=== PATIENT | female | born 1940 | race Caucasian/White ===

== ENCOUNTER → 2018-07-05 10:42 | Outpatient (BNVA) | payer MEDICARE, SELFPAY | PROVIDERS: PCP Family Medicine; Visit Provider Orthopaedic Surgery | DX: S83.231D Complex tear of medial meniscus, current injury, right knee, subsequent encounter (principal); M25.561 Pain in right knee | CPT/HCPCS: 20610; 99213; J7325 ==

== ENCOUNTER 2018-10-11 09:09 | Day surgery (SDC) | payer MEDICARE, SELFPAY ==
--- NOTE | 2018-10-10 17:41 | W.PIPPEYE ---
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 She has undergone previous iridotomies. She presented with complaints of progressive decreased vision in both eyes at both distance and near. She was noted to have moderate bilateral nuclear and cortical cataracts with visual acuity of 20/40 OD, 20/60 OS. The option of cataract surgery was offered to the patient and she felt she was symptomatic enough that she wished to proceed. NOTE: The Chief Complaint, HPI, Past Medical History, Past Surgical History, Family History, Social History, Medications, and complete Ophthalmic Exam with detailed Assessment and Plan have already been documented in the patient's outpatient ophthalmic record and are not covered again in detail here. PFSH Medical History Anatomical narrow angle of right eye (Acute) Cortical cataract of right eye (Acute) Nuclear sclerotic cataract of right eye (Acute) Depression Glaucoma Graves disease Hiatal hernia Ocular migraine Psoriatic arthritis Family History Mother Diabetes Father Neoplasm Sister Neoplasm Brother Heart disease Brother No problems noted. Grandfather No problems noted. Grandfather No problems noted. Grandmother Diabetes Personal history of malignant neoplasm Grandmother No problems noted. Social History Smoking/Tobacco Use Status: Never Meds Home Medications Medication Instructions Recorded Confirmed Type calcium-vitamin D3-vitamin K 1 tab PO BID 02/25/13 10/06/18 History ibuprofen [Advil] 1 - 2 tab PO PRN PRN 02/25/13 10/06/18 History biotin 5,000 mcg PO DAILY 12/23/13 10/06/18 History cranberry extract 200 mg PO BID 05/02/16 10/06/18 History docusate sodium 100 mg PO DAILY 04/16/18 10/06/18 History methimazole 0.5 tab PO .QAM 04/16/18 10/06/18 History propranolol 0.5 tab PO BID 04/16/18 10/06/18 History nsprsadr-plyyx-cyd7-C-opal-bor 1 cap PO BID 10/05/18 10/06/18 History [Kceiaqgd-Mknih-FNK(with boron)] lactobacillus combination no.4 1 cap PO DAILY 10/06/18 10/06/18 History [Probiotic] Allergies Allergy/AdvReac Type Severity Reaction Status Date / Time No Known Drug Allergies Allergy Unknown unknown Unverified 04/22/17 19:27 Exam OCULAR EXAM:: Most recent ophthalmic examination reveals a corrected visual acuity of 20/40 OD, 20/60 OS. Intraocular pressure is 20 OD, 18 OS. Pupils equal, round, and reactive without afferent pupillary defect. Extraocular motility is normal. Slit-lamp examination is significant for pupils dilated to 7 mm OU. Intermediate to shallow anterior chamber depth with patent peripheral iridotomies. 1-2+ nuclear with 1+ cortical cataract is present OU. Dilated funduscopic examination reveals disc cupping of 0.5 OU with good color. The optic nerves have good perfusion and normal color. The retinal vasculature is normal without significant tortuosity or abnormality. The maculas are normal in appearance with normal contour and foveal reflex appropriate for age. The peripheral retina and vitreous are normal. BRIGHTNESS ACUITY TESTING (BAT):: Brightness acuity testing of the right eye office is 20/40. Low is 20/60. Medium is 20/70. Height is 20/80. Assessment and Plan (1) Nuclear sclerotic cataract of right eye: Current visit: No Status: Acute Assessment: Visually significant cataract, right eye. Plan: Cataract extraction with intraocular lens implantation, right eye (2) Cortical cataract of right eye: Current visit: No Status: Acute Assessment: Visually significant cataract, right eye. Plan: Cataract extraction with intraocular lens implantation, right eye Note: NOTE:: The details of the planned surgery, including the risks, indications,limitations,expectations,outcome and possible complications were explained to the patient. The patient understands the complications including, but not limited to: infection, hemorrhage, posterior dislocation of the lens or nuclear fragments which may require the intervention of a vitreoretinal surgeon, possible loss of the eye, or from anesthetic complications. The patient has been made aware of the option of not having surgery, that vision following surgery may not be equal to that prior to surgery, and that the planned surgery may not achieve the intended results. Following this discussion, which the patient appeared to understand, the patient wishes to proceed with cataract surgery with lens implantation of the affected eye to improve and maximize vision.
[2018-10-11 09:37] VITALS: BP 146/79; PULSE 63; RESP 16; TEMP 36.1; O2SAT 97
[2018-10-11] MEDS: Tetracaine 0.5% 4 ML BTL OD ×4 (09:43→10:23)
[2018-10-11] MEDS: Tropicam./Phenyleph. (1/2.5%) 5 ML BTL OD ×3 (09:43→10:05)
[2018-10-11] MEDS: Lidocaine 2% Jelly 6 ML SYR (10:25)
[2018-10-11] MEDS: Duovisc Viscoelastic System EACH 1 EACH (10:29)
[2018-10-11] MEDS: Balanced Salt Soln.-PLUS 500 ML BAG (10:29)
[2018-10-11] MEDS: Lidocaine 1% Pres-Free 5 ML VIAL (10:29)
[2018-10-11] MEDS: Povidone-Iodine Ophth 30 ML BTL (10:33)
--- NOTE | 2018-10-11 11:00 | W.PM.DSUDISC ---
Discharge Plan Discharge Details Attending Provider: Brad Scott Primary Care Provider: Mandy Orta Home Meds and New Rx's Prescriptions: No Action cranberry extract 200 MG capsule 200 mg PO BID RF: 0 ibuprofen [Advil] 200 MG tablet 1 - 2 tab PO PRN PRNRF: 0 calcium-vitamin D3-vitamin K 1 EACH tablet,chewable 1 tab PO BID RF: 0 biotin 1 MG tablet 5,000 mcg PO DAILY RF: 0 propranolol 10 MG tablet 0.5 tab PO BID RF: 0 methimazole 5 MG tablet 0.5 tab PO .QAM RF: 0 docusate sodium 100 MG tablet 100 mg PO DAILY RF: 0 dogcrfln-zeyid-lms0-C-opal-bor [Erlyhhoq-Hlbem-QLF(with boron)] 216-564-14-1 mg Tablet 1 cap PO BID RF: 0 Probiotic 3 billion cell Capsule 1 cap PO DAILY RF: 0 Discharge Instructions Stand Alone Forms: Post-op Topical Cataract, Terry Giles (DSU) DS: Diagnosis Discharge Diagnosis (1) Status post cataract extraction and insertion of intraocular lens of right eye: Status: Acute
--- NOTE | 2018-10-11 11:00 | W.PM.OP ---
Date of service: 10/11/18 Time of Service: 11:00 Operative Note DATE OF PROCEDURE: 10/11/18 PRE-OP DIAGNOSIS: Cataract, right eye POST-OP DIAGNOSIS: same SURGEON: Brad Scott ANESTHESIA: MAC and local (sub-tenon's anesthetic infiltration) PATHOLOGY: none sent COMPLICATIONS: None Patient was transported to: same day Patient's condition: stable Implants: Elías and Elías Vision / [employer] Tecnis ZCB00 Indications: Progressive decreased vision due to cataract, right eye Procedure Description: CATARACT SURGERY OPERATIVE REPORT PREOPERATIVE DIAGNOSIS: Nuclear/cortical cataract, right eye POSTOPERATIVE DIAGNOSIS: Same OPERATION: Cataract extraction using phacoemulsification with posterior chamber intraocular lens implant, right eye. IOL: IOL Painter Plate/Model: J&J Vision / EVANGELISTA Tecnis ZCB00 IOL Power: + 24.0 diopters IOL Serial Number: [id number] Optic Diameter: 6.0mm Haptic/Overall Diameter: 13.0mm PHACO INFO: Barry FamilyLinkurion Vision System with OZil and Active Fluidics Cumulative Dispersed Energy (CDE): 6.0 seconds SURGEON: Brad Scott MD, BARI ANESTHESIA: Monitored Anesthesia Care (MAC), with local sub-tenon's anesthetic infiltration COMPLICATIONS: None SPECIMENS: None INDICATIONS FOR PROCEDURE: The patient is a 78-year-old lady with history of narrow angles who has previously undergone peripheral laser iridotomy in both eyes. She has developed a moderate nuclear and cortical cataract in the right eye. She desires cataract surgery and attempt to improve and maximize her vision. PROCEDURE: The correct surgical eye was identified and marked as the right eye and the pupil was dilated in the preoperative area using mydriatics and cycloplegics. The dilated pupil size was 7.0 mm. Oral sedation was administered in the form of an Imprimis MKO Melt (midazolam 3mg/ketamine 25mg/ondansetron 2mg). The patient was brought to the operating room where cardiopulmonary monitoring was instituted and surgical time-out was performed, confirming the correct operative eye and IOL power. Topical anesthesia was administered and ophthalmic povidone-iodine 5% was instilled into the conjunctival fornices. Lidocaine gel was applied to the cornea and the gwendolyn-ocular area was prepped with Betadine 10% solution and draped in the usual sterile fashion for intraocular surgery, including an aperture drape. A Tegaderm transparent film dressing was cut in half and used to cover the lashes and lid margins. Care was taken to sequester the lashes and lid margins under the Tegaderm dressing. A lid speculum was placed between the lids of the operative eye and the Anusha-Zaida operating microscope was maneuvered into position. Che scissors were then used to make a conjunctival buttonhole approximately 6mm posterior to the limbus in the inferonasal quadrant. Blunt dissection was carried out to expose bare sclera, and a blunt-tipped sub-tenon?s anesthesia cannula was introduced and passed posteriorly along the globe where non-preserved plain lidocaine was injected into posterior sub-Tenon?s space. A sideport knife was used to make a paracentesis port in the inferiortemporal position and the anterior chamber was filled with Viscoat for added endothelial protection due to the narrow angle/shallow chamber.. A 2.4mm keratome knife was used to create a half-thickness groove at the limbus and then to construct a three-plane near-clear corneal tunnel extending 2.0mm into clear cornea in the superiortemporal position. . A flap was raised on the anterior capsule and capsulorhexis forceps were used to complete a continuous curvilinear capsulorhexis of 5.0 mm. Balanced salt solution was then used to perform cortical cleaving hydrodissection and nuclear hydrodelineation until the lens could be freely rotated within the capsular bag. The lens nucleus was then disassembled and removed within the capsular bag and iris plane using phacoemulsification. Residual cortical material was removed using the 45-degree angled silicone I/A tip with 0.3mm port. The posterior capsule was carefully polished to remove as much residual lens epithelial cells as safely possible. The capsular bag was then inflated and the anterior chamber deepened with Provisc. The lens implant described above was inserted into the capsular bag using the EVANGELISTA [place] Injector. A Kuglen hook was used to dial the IOL into position. Residual viscoelastic was then removed first from posterior to the IOL, then from the anterior chamber using the I/A handpiece. The lens implant was noted to center nicely within the capsular bag. The incisions were stromally hydrated, and the anterior chamber was reformed using BSS. Then 0.4cc of moxifloxacin 1.5mg/ml were injected into the capsular bag and anterior chamber. The incisions were checked with a Weck spear and found to be secure. Several drops of ophthalmic povidone-iodine 5% were then applied to the eye followed by two drops of Imprimis combination moxifloxacin/dexamethasone solution. The drapes were removed and a clear plastic protective eye shield was placed over the eye. The patient was then returned to Same Day Surgery in stable condition.
--- NOTE | 2018-10-11 11:03 | ROE_ITS ---
Date of service: 10/11/18 Time of Service: 11:00 Operative Note DATE OF PROCEDURE: 10/11/18 PRE-OP DIAGNOSIS: Cataract, right eye POST-OP DIAGNOSIS: same SURGEON: Brad Scott ANESTHESIA: MAC and local (sub-tenon's anesthetic infiltration) PATHOLOGY: none sent COMPLICATIONS: None Patient was transported to: same day Patient's condition: stable Implants: Elías and Elías Vision / [employer] Tecnis [id number] Indications: Progressive decreased vision due to cataract, right eye Procedure Description: CATARACT SURGERY OPERATIVE REPORT PREOPERATIVE DIAGNOSIS: Nuclear/cortical cataract, right eye POSTOPERATIVE DIAGNOSIS: Same OPERATION: Cataract extraction using phacoemulsification with posterior chamber intraocular lens implant, right eye. IOL: IOL Prison Keeper/Model: J&J Vision / EVANGELISTA Tecnis ZCB00 IOL Power: + 24.0 diopters IOL Serial Number: [id number] Optic Diameter: 6.0mm Haptic/Overall Diameter: 13.0mm PHACO INFO: Barry We[employer]lowurion Vision System with OZil and Active Fluidics Cumulative Dispersed Energy (CDE): 6.0 seconds SURGEON: Brad Scott MD, BARI ANESTHESIA: Monitored Anesthesia Care (MAC), with local sub-tenon's anesthetic infiltration COMPLICATIONS: None SPECIMENS: None INDICATIONS FOR PROCEDURE: The patient is a 78-year-old lady with history of narrow angles who has previously undergone peripheral laser iridotomy in both eyes. She has developed a moderate nuclear and cortical cataract in the right eye. She desires cataract surgery and attempt to improve and maximize her vision. PROCEDURE: The correct surgical eye was identified and marked as the right eye and the pupil was dilated in the preoperative area using mydriatics and cycloplegics. The dilated pupil size was 7.0 mm. Oral sedation was administered in the form of an Imprimis MKO Melt (midazolam 3mg/ketamine 25mg/ondansetron 2mg). The patient was brought to the operating room where cardiopulmonary monitoring was instituted and surgical time-out was performed, confirming the correct operative eye and IOL power. Topical anesthesia was administered and ophthalmic povidone-iodine 5% was instilled into the conjunctival fornices. Lidocaine gel was applied to the cornea and the gwendolyn-ocular area was prepped with Betadine 10% solution and draped in the usual sterile fashion for intraocular surgery, including an aperture drape. A Tegaderm transparent film dressing was cut in half and used to cover the lashes and lid margins. Care was taken to sequester the lashes and lid margins under the Tegaderm dressing. A lid speculum was placed between the lids of the operative eye and the Anusha-Zaida operating microscope was maneuvered into position. Che scissors were then used to make a conjunctival buttonhole approximately 6mm posterior to the limbus in the inferonasal quadrant. Blunt dissection was carried out to expose bare sclera, and a blunt-tipped sub-tenon?s anesthesia cannula was introduced and passed posteriorly along the globe where non- preserved plain lidocaine was injected into posterior sub-Tenon?s space. A sideport knife was used to make a paracentesis port in the inferiortemporal position and the anterior chamber was filled with Viscoat for added endothelial protection due to the narrow angle/shallow chamber.. A 2.4mm keratome knife was used to create a half-thickness groove at the limbus and then to construct a three-plane near-clear corneal tunnel extending 2.0mm into clear cornea in the superiortemporal position. . A flap was raised on the anterior capsule and capsulorhexis forceps were used to complete a continuous curvilinear capsulorhexis of 5.0 mm. Balanced salt solution was then used to perform cortical cleaving hydrodissection and nuclear hydrodelineation until the lens could be freely rotated within the capsular bag. The lens nucleus was then disassembled and removed within the capsular bag and iris plane using phacoemulsification. Resi dual cortical material was removed using the 45-degree angled silicone I/A tip with 0.3mm port. The posterior capsule was carefully polished to remove as much residual lens epithelial cells as safely possible. The capsular bag was then inflated and the anterior chamber deepened with Provisc. The lens implant described above was inserted into the capsular bag using the EVANGELISTA [place] Injector. A Kuglen hook was used to dial the IOL into position. Residual viscoelastic was then removed first from posterior to the IOL, then from the anterior chamber using the I/A handpiece. The lens implant was noted to center nicely within the capsular bag. The incisions were stromally hydrated, and the anterior chamber was reformed using BSS. Then 0.4cc of moxifloxacin 1.5mg/ml were injected into the capsular bag and anterior chamber. The incisions were checked with a Weck spear and found to be secure. Several drops of ophthalmic povidone-iodine 5% were then applied to the eye followed by two drops of Imprimis combination moxifloxacin/dexamethasone solution. The drapes were removed and a clear plastic protective eye shield was placed over the eye. The patient was then returned to Same Day Surgery in stable condition.
[2018-10-11 11:30] VITALS: BP 120/66; PULSE 69; RESP 16; O2SAT 98
== END 2018-10-11 11:40 | disposition home or self-care (01) ==
LOC: SUR 09:10
PROVIDERS: PCP Family Medicine; Visit Provider Ophthalmology
PROC: (CPT 66984; principal; 2018-10-11 11:30)
DX: H25.811 Combined forms of age-related cataract, right eye (principal); I10 Essential (primary) hypertension
CPT/HCPCS: 66984; V2632

== ENCOUNTER 2018-10-22 08:18 | Day surgery (SDC) | payer MEDICARE, SELFPAY ==
--- NOTE | 2018-10-21 12:08 | W.PIPPEYE ---
History of Present Illness Chief Complaint: Progressive decreased vision, left eye Narrative: The patient is a 78-year old lady with history of hyperopia with narrow anterior chamber angles. She has previously undergone laser iridotomy in both eyes. She presented with complaints of diminished visual acuity in both eyes at both distance and near. She was noted to have moderate bilateral nuclear and cortical cataracts with visual acuity of 20/40 OD, 20/60 OS. The option of cataract surgery was offered to the patient and she wished to proceed. She underwent cataract surgery in the right eye on 10/11/2018. She is doing well postoperatively with uncorrected vision of 20/20 in the right eye. She now presents for cataract surgery in the left eye. NOTE: The Chief Complaint, HPI, Past Medical History, Past Surgical History, Family History, Social History, Medications, and complete Ophthalmic Exam with detailed Assessment and Plan have already been documented in the patient's outpatient ophthalmic record and are not covered again in detail here. PFSH Medical History Nuclear sclerotic cataract of left eye (Acute) Cortical cataract of left eye (Acute) Anatomical narrow angle of right eye (Resolved) Cortical cataract of right eye (Resolved) Nuclear sclerotic cataract of right eye (Resolved) Depression Glaucoma Graves disease Hiatal hernia Ocular migraine Psoriatic arthritis Surgical History Status post cataract extraction and insertion of intraocular lens of right eye (Acute 10/11/18) Family History Mother Diabetes Father Neoplasm Sister Neoplasm Brother Heart disease Brother No problems noted. Grandfather No problems noted. Grandfather No problems noted. Grandmother Diabetes Personal history of malignant neoplasm Grandmother No problems noted. Social History Smoking/Tobacco Use Status: Never Meds Home Medications Medication Instructions Recorded Confirmed Type calcium-vitamin D3-vitamin K 1 tab PO BID 02/25/13 10/11/18 History ibuprofen [Advil] 1 - 2 tab PO PRN PRN 02/25/13 10/11/18 History biotin 5,000 mcg PO DAILY 12/23/13 10/11/18 History cranberry extract 200 mg PO BID 05/02/16 10/11/18 History docusate sodium 100 mg PO DAILY 04/16/18 10/11/18 History methimazole 0.5 tab PO .QAM 04/16/18 10/11/18 History propranolol 0.5 tab PO BID 04/16/18 10/11/18 History txdomkzb-hglyl-tkt4-C-opal-bor 1 cap PO BID 10/05/18 10/11/18 History [Xqkxnxbq-Wgyik-PAG(with boron)] lactobacillus combination no.4 1 cap PO DAILY 10/06/18 10/11/18 History [Probiotic] Allergies Allergy/AdvReac Type Severity Reaction Status Date / Time No Known Drug Allergies Allergy Unknown unknown Unverified 10/11/18 09:34 Exam OCULAR EXAM:: Most recent ocular examination reveals uncorrected visual acuity of 20/20 in the right eye. Corrected visual acuity is 20/60 in the left eye. Intraocular pressure is 20 OD, 18 OS. Pupils equal, round, and reactive without afferent pupillary defect extraocular motility is normal. Slit-lamp examination is significant for a patent peripheral iridotomy in both eyes. A well-positioned PCIOL is present OD with clear posterior capsule. The left eye there is a shallow to intermediate anterior chamber depth with 1-2+ nuclear and 1+ cortical cataract. Dilated funduscopic examination shows disc cupping of 0.5 OU with normal vessels, macula, peripheral retina and vitreous. BRIGHTNESS ACUITY TESTING (BAT):: Brightness acuity testing of the left eye off is 20/60. Low 20/60. Medium 20/60. I 20/60. Assessment and Plan (1) Cortical cataract of left eye: Current visit: No Status: Acute Assessment: Visually significant cataract, left eye. Plan: Cataract extraction with intraocular lens implantation, left eye (2) Nuclear sclerotic cataract of left eye: Current visit: No Status: Acute Assessment: Visually significant cataract, left eye. Plan: Cataract extraction with intraocular lens implantation, left eye Note: NOTE:: The details of the planned surgery, including the risks, indications,limitations,expectations,outcome and possible complications were explained to the patient. The patient understands the complications including, but not limited to: infection, hemorrhage, posterior dislocation of the lens or nuclear fragments which may require the intervention of a vitreoretinal surgeon, possible loss of the eye, or from anesthetic complications. The patient has been made aware of the option of not having surgery, that vision following surgery may not be equal to that prior to surgery, and that the planned surgery may not achieve the intended results. Following this discussion, which the patient appeared to understand, the patient wishes to proceed with cataract surgery with lens implantation of the affected eye to improve and maximize vision.
[2018-10-22 08:32] VITALS: BP 145/77; PULSE 88; RESP 16; TEMP 36.6; O2SAT 98
[2018-10-22] MEDS: Tropicam./Phenyleph. (1/2.5%) 5 ML BTL OS ×3 (08:46→08:53)
[2018-10-22] MEDS: Tetracaine 0.5% 4 ML BTL OS ×4 (08:46→10:18)
[2018-10-22] MEDS: Povidone-Iodine Ophth 30 ML BTL (10:18)
[2018-10-22] MEDS: Lidocaine 1% Pres-Free 5 ML VIAL (10:18)
[2018-10-22] MEDS: Balanced Salt Soln.-PLUS 500 ML BAG (10:18)
[2018-10-22] MEDS: Duovisc Viscoelastic System EACH 1 EACH (10:18)
[2018-10-22] MEDS: Lidocaine 2% Jelly 6 ML SYR (10:18)
--- NOTE | 2018-10-22 10:50 | W.PM.DSUDISC ---
Discharge Plan Discharge Details Reason For Visit: CATARACT OS Attending Provider: Brad Scott Primary Care Provider: Mandy Orta Home Meds and New Rx's Prescriptions: No Action cranberry extract 200 MG capsule 200 mg PO BID RF: 0 ibuprofen [Advil] 200 MG tablet 1 - 2 tab PO PRN PRNRF: 0 calcium-vitamin D3-vitamin K 1 EACH tablet,chewable 1 tab PO BID RF: 0 biotin 1 MG tablet 5,000 mcg PO DAILY RF: 0 propranolol 10 MG tablet 0.5 tab PO BID RF: 0 methimazole 5 MG tablet 0.5 tab PO .QAM RF: 0 docusate sodium 100 MG tablet 100 mg PO DAILY RF: 0 ssxdxlsm-slbmu-ijc9-C-opal-bor [Flotfktt-Tiqkd-LPO(with boron)] 220-083-31-1 mg Tablet 1 cap PO BID RF: 0 Probiotic 3 billion cell Capsule 1 cap PO DAILY RF: 0 Discharge Instructions Stand Alone Forms: Post-op Topical Cataract, Terry Giles (DSU) DS: Diagnosis Discharge Diagnosis (1) Status post cataract extraction and insertion of intraocular lens of left eye: Status: Chronic
--- NOTE | 2018-10-22 10:51 | W.PM.OP ---
Date of service: 10/22/18 Time of Service: 10:51 Operative Note PRE-OP DIAGNOSIS: Cataract, left eye POST-OP DIAGNOSIS: same PROCEDURE: Cataract extraction using phacoemulsification with intraocular lens implant, left eye SURGEON: Brad Scott ANESTHESIA: MAC and local (sub-tenon's anesthetic infiltration) PATHOLOGY: none sent COMPLICATIONS: None Patient was transported to: same day Patient's condition: stable Implants: Elías and Elías [employer] / [employer] Tecnis [id number] Indications: Progressive decreased vision due to cataract, left eye Procedure Description: CATARACT SURGERY OPERATIVE REPORT PREOPERATIVE DIAGNOSIS: Nuclear/cortical cataract, left eye POSTOPERATIVE DIAGNOSIS: Same OPERATION: Cataract extraction using phacoemulsification with posterior chamber intraocular lens implant, left eye. 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/Model: [employer] / EVANGELISTA Tecnis ZCB00 IOL Power: + 24.0 diopters IOL Serial Number: [id number] Optic Diameter: 6.0mm Haptic/Overall Diameter: 13.0mm PHACO INFO: Barry POWurion Vision System with OZil and Active [employer]uidics Cumulative Dispersed Energy (CDE): 6.6 seconds SURGEON: Brad Scott MD, BARI ANESTHESIA: Monitored Anesthesia Care (MAC), with local sub-tenon's anesthetic infiltration COMPLICATIONS: None SPECIMENS: None INDICATIONS FOR PROCEDURE: The patient is a 78-year-old lady with history of narrow anterior chamber angles who is pre-of the undergone laser iridotomy. She developed some dramatic bilateral nuclear and cortical cataracts. She has already undergone cataract surgery in her right eye on 10/11/2018 and is doing well postoperatively. She now presents for cataract surgery in the left eye. PROCEDURE: The correct surgical eye was identified and marked as the left eye and the pupil was dilated in the preoperative area using mydriatics and cycloplegics. The dilated pupil size was 6.0 mm. Oral sedation was administered in the form of an Imprimis MKO Melt (midazolam 3mg/ketamine 25mg/ondansetron 2mg). The patient was brought to the operating room where cardiopulmonary monitoring was instituted and surgical time-out was performed, confirming the correct operative eye and IOL power. Topical anesthesia was administered and ophthalmic povidone-iodine 5% was instilled into the conjunctival fornices. Lidocaine gel was applied to the cornea and the gwendolyn-ocular area was prepped with Betadine 10% solution and draped in the usual sterile fashion for intraocular surgery, including an aperture drape. A Tegaderm transparent film dressing was cut in half and used to cover the lashes and lid margins. Care was taken to sequester the lashes and lid margins under the Tegaderm dressing. A lid speculum was placed between the lids of the operative eye and the Anusha-Zaida operating microscope was maneuvered into position. Che scissors were then used to make a conjunctival buttonhole approximately 6mm posterior to the limbus in the inferonasal quadrant. Blunt dissection was carried out to expose bare sclera, and a blunt-tipped sub-tenon?s anesthesia cannula was introduced and passed posteriorly along the globe where non-preserved plain lidocaine was injected into posterior sub-Tenon?s space. A sideport knife was used to make a paracentesis port superior/superiortemporal, and the anterior chamber was filled with Viscoat. A 2.4mm keratome knife was used to create a half-thickness groove at the limbus and then to construct a three-plane near-clear corneal tunnel extending 2.0mm into clear cornea in the temporal position. . A flap was raised on the anterior capsule and capsulorhexis forceps were used to complete a continuous curvilinear capsulorhexis of 5.5 mm. Balanced salt solution was then used to perform cortical cleaving hydrodissection and nuclear hydrodelineation until the lens could be freely rotated within the capsular bag. The lens nucleus was then disassembled and removed within the capsular bag and iris plane using phacoemulsification. Residual cortical material was removed using the 45-degree angled silicone I/A tip with 0.3mm port. The posterior capsule was carefully polished to remove as much residual lens epithelial cells as safely possible. The capsular bag was then inflated and the anterior chamber deepened with Provisc. The lens implant described above was inserted into the capsular bag using the EVANGELISTA Ione Injector. A Kuglen hook was used to dial the IOL into position. Residual viscoelastic was then removed first from posterior to the IOL, then from the anterior chamber using the I/A handpiece. The lens implant was noted to center nicely within the capsular bag. The incisions were stromally hydrated, and the anterior chamber was reformed using BSS. Then 0.4cc of moxifloxacin 1.5mg/ml were injected into the capsular bag and anterior chamber. The incisions were checked with a Weck spear and found to be secure. Several drops of ophthalmic povidone-iodine 5% were then applied to the eye followed by two drops of Imprimis combination moxifloxacin/dexamethasone solution. The drapes were removed and a clear plastic protective eye shield was placed over the eye. The patient was then returned to Same Day Surgery in stable condition.
[2018-10-22 11:10] VITALS: BP 129/82; PULSE 77; RESP 16; TEMP 36.2; O2SAT 99
== END 2018-10-22 11:15 | disposition home or self-care (01) ==
LOC: SUR 08:18
PROVIDERS: PCP Family Medicine; Visit Provider Ophthalmology
PROC: (CPT 66984; principal; 2018-10-22 10:30)
DX: H25.812 Combined forms of age-related cataract, left eye (principal); Z98.41 Cataract extraction status, right eye; Z96.1 Presence of intraocular lens; I10 Essential (primary) hypertension
CPT/HCPCS: 66984; V2632

== ENCOUNTER 2018-11-16 00:16 | Outpatient (CLI) | payer MEDICARE, SELFPAY ==
--- NOTE | 2018-11-16 13:15 | DI.RAD_ITS ---
SYMPTOMS/DIAGNOSIS: MENOPAUSE, Z78.0, MENOPAUSAL AND POSTMENOPAUSAL DISORDERS, N95.9 DEXA SCAN: Routine examination was performed. There are no priors for comparison. Evaluation of the lateral spine shows no compression deformities. Evaluation of the left hip shows a total T score of -1.8 and a Z score of 0. This is consistent with osteopenia and an increased fracture risk. Evaluation of the lumbar spine shows a total T score of -0.2 and a Z score of 2.2, which is within normal limits. IMPRESSION: No evidence of osteoporosis. Osteopenia in the left hip.
== END 2018-11-16 00:36 ==
PROVIDERS: PCP Family Medicine; Visit Provider Nurse Practitioner
DX: M85.88 Other specified disorders of bone density and structure, other site (principal); Z78.0 Asymptomatic menopausal state; N95.9 Unspecified menopausal and perimenopausal disorder
CPT/HCPCS: 77080

== ENCOUNTER 2019-01-25 10:38 | Outpatient (CLI) | payer MEDICARE, SELFPAY ==
--- NOTE | 2019-01-25 10:34 | DI.RAD_ITS ---
SYMPTOMS/DIAGNOSIS: NEW ONSET OF PAIN RIGHT KNEE: Medial tibiofemoral joint space narrowing is noted. There is minimal periarticular hypertrophic spurring. 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
== END 2019-01-25 10:58 ==
PROVIDERS: PCP Family Medicine; Referring Provider Family Medicine; Visit Provider Orthopaedic Surgery
DX: M17.11 Unilateral primary osteoarthritis, right knee (principal); M25.561 Pain in right knee
CPT/HCPCS: 20610; 73562; 99211; 99213; J7325

== ENCOUNTER 2019-02-09 08:00 | Outpatient (CLI) | payer MEDICARE, SELFPAY ==
[2019-02-09 13:37] LABS: ALT 22 U/L (12-78); AST 17 U/L (15-37); Albumin 3.6 g/dL (3.4-5.0); Alkaline Phosphatase 92 U/L (46-116); Bilirubin, Direct 0.09 mg/dL (0.00-0.20); Bilirubin, Total 0.3 mg/dL (0.2-1.0); TSH (W/Ref FT4) 1.04 uIU/mL (0.358-3.74); Total Protein 6.4 g/dL (6.4-8.2)
== END 2019-02-09 08:20 ==
PROVIDERS: PCP Family Medicine; Visit Provider Nurse Practitioner Family
DX: E05.90 Thyrotoxicosis, unspecified without thyrotoxic crisis or storm (principal)
CPT/HCPCS: 36415; 80076; 84443

== ENCOUNTER → 2019-03-10 10:30 | Outpatient (BNVA) | payer MEDICARE, SELFPAY | PROVIDERS: PCP Family Medicine; Referring Provider Family Medicine; Visit Provider Orthopaedic Surgery | DX: M17.11 Unilateral primary osteoarthritis, right knee (principal); Z98.890 Other specified postprocedural states | CPT/HCPCS: 20610; 99211; 99212; J1040 ==

== ENCOUNTER 2019-05-19 08:28 | Outpatient (CLI) | payer MEDICARE, SELFPAY ==
[2019-05-19 08:58] LABS: HCT 38.5 % (36.0-46.0); HGB 12.5 g/dL (12.0-15.5); Mean Corp. HGB Concentration 32.5 g/dL (32.0-36.0); Mean Corpuscular Hemoglobin 30.7 pg (27.0-33.0); Mean Corpuscular Volume 94.6 fL (80-95); Mean Platelet Volume 11.2 fL (8.0-11.0); Platelet Count 207 x1000/uL (130-400); RBC 4.07 m/cumm (4.00-5.20); RBC Distribution Width 14.6 % (11.7-14.6); White Blood Cell Count 4.62 k/cumm (4.4-10.8)
[2019-05-19 10:25] LABS: ALT 27 U/L (12-78); AST 18 U/L (15-37); Albumin 3.8 g/dL (3.4-5.0); Alkaline Phosphatase 94 U/L (46-116); Anion Gap 9.2 mmol/L (3-11); BUN 19 mg/dL (7-18); Bilirubin, Total 0.3 mg/dL (0.2-1.0); CO2 27.8 mmol/L (21.0-32.0); CREATININE 0.65 mg/dL (0.55-1.02); Calcium 8.8 mg/dL (8.5-10.1); Calculated LDL 150 mg/dL; Chloride 104 mmol/L (98-107); Cholesterol 222 mg/dL (50-200); Glucose 99 mg/dL (70-100); HDL Cholesterol 58 mg/dL (40-60); Sodium 141 mmol/L (136-145); TSH (W/Ref FT4) 1.02 uIU/mL (0.36-3.74); Total Protein 6.6 g/dL (6.4-8.2); Triglyceride 71 mg/dL (30-150)
== END 2019-05-19 08:48 ==
PROVIDERS: PCP Family Medicine; Visit Provider Family Medicine
DX: E05.00 Thyrotoxicosis with diffuse goiter without thyrotoxic crisis or storm (principal); Z13.6 Encounter for screening for cardiovascular disorders; M85.80 Other specified disorders of bone density and structure, unspecified site; Z13.1 Encounter for screening for diabetes mellitus
CPT/HCPCS: 36415; 80053; 80061; 83721; 85027; 84443

== ENCOUNTER 2019-06-06 00:46 | Outpatient (CLI) | payer MEDICARE, SELFPAY ==
--- NOTE | 2019-06-06 13:12 | DI.MAMMO_ITS ---
SYMPTOMS/DIAGNOSIS: SCREENING, Z12.31 MAMMOGRAM: Mammograms were interpreted according to the usual protocol including computer analysis with CAD system, tomosynthesis and C view imaging. The breasts are of moderate density with fairly symmetrical distribution of fibroglandular tissue. No dominant mass or clumped microcalcification is identified in either breast. The current examination is compared with previous examinations including February 2017 and there has been no gross interval change in appearance in comparison with the previous study. CONCLUSION: No specific evidence of malignancy at this time. Routine screening examinations are suggested at yearly intervals in this age group according to the ACS/ACR guidelines. Category I. Breast density Category B. MQSA ASSESSMENT OF FINDINGS: Negative. Category 1. Patient will receive a letter notifying them of these results. BI-RADS category B. There are scattered areas of fibroglandular density.
== END 2019-06-06 01:06 ==
PROVIDERS: PCP Family Medicine; Visit Provider Family Medicine
DX: Z12.31 Encounter for screening mammogram for malignant neoplasm of breast (principal)
CPT/HCPCS: 77063; 77067

== ENCOUNTER → 2019-08-22 10:47 | Outpatient (BNVA) | payer MEDICARE, SELFPAY | PROVIDERS: PCP Family Medicine; Referring Provider Family Medicine; Visit Provider Student in an Organized Health Care Education/Training Program | DX: M17.11 Unilateral primary osteoarthritis, right knee (principal) | CPT/HCPCS: 20610; 99214; J1040 ==

== ENCOUNTER 2020-06-05 14:52 | Outpatient (REF) | payer MEDICARE, SELFPAY ==
[2020-06-05 21:29] LABS: ALT 24 U/L (14-59); AST 25 U/L (15-37); Albumin 3.8 g/dL (3.4-5.0); Alkaline Phosphatase 84 U/L (46-116); Anion Gap 6.8 mmol/L (3-11); BUN 17 mg/dL (7-18); Bilirubin, Total 0.3 mg/dL (0.2-1.0); CO2 30.2 mmol/L (21.0-32.0); CREATININE 0.78 mg/dL (0.55-1.02); Calculated LDL 139 mg/dL (<100); Chloride 103 mmol/L (98-107); Cholesterol 218 mg/dL (<200); Glucose 102 mg/dL (74-106); HDL Cholesterol 58 mg/dL (40-60); Potassium 4.2 mmol/L (3.5-5.1); Sodium 140 mmol/L (136-145); TSH (W/Ref FT4) 0.78 uIU/mL (0.36-3.74); Total Protein 6.6 g/dL (6.4-8.2); Triglyceride 108 mg/dL (<150)
== END 2020-06-05 15:12 ==
LOC: NCHCN 14:52
PROVIDERS: PCP Family Medicine; Visit Provider Family Medicine
DX: E05.00 Thyrotoxicosis with diffuse goiter without thyrotoxic crisis or storm (principal)
CPT/HCPCS: 80053; 80061; 84443

== ENCOUNTER → 2020-08-20 09:26 | Outpatient (BNVA) | payer MEDICARE, SELFPAY | PROVIDERS: PCP Family Medicine; Referring Provider Family Medicine; Visit Provider Student in an Organized Health Care Education/Training Program | DX: M17.11 Unilateral primary osteoarthritis, right knee (principal); Z98.890 Other specified postprocedural states | CPT/HCPCS: 20610; 99213; J1040 ==

== ENCOUNTER 2020-10-16 02:11 | Outpatient (CLI) | payer MEDICARE, SELFPAY ==
[2020-10-16 11:15] LABS: AST 16 U/L (15-37); FREE T4 0.79 ng/dL (0.76-1.46); TSH 0.75 uIU/mL (0.36-3.74)
== END 2020-10-16 02:31 ==
PROVIDERS: PCP Family Medicine; Visit Provider Internal Medicine Endocrinology, Diabetes & Metabolism
DX: E05.90 Thyrotoxicosis, unspecified without thyrotoxic crisis or storm (principal)
CPT/HCPCS: 36415; 84439; 84443; 84450

== ENCOUNTER 2020-12-31 10:30 | Emergency (ER) | payer MEDICARE, SELFPAY ==
[2020-12-31] VITALS (35 sets, daily range): BP systolic 123–161; BP diastolic 54–124; PULSE 67–97; RESP 13–23; TEMP 36.5–37; O2SAT 94–100
--- NOTE | 2020-12-31 10:30 | RT.EKG_ITS ---
APPROVED REPORT Exam: Resting ECG Patient Location: E HR:81 bpm ECG Measurements Heart Rate 81 AXIS OK 183 P 75 QRSd 81 QRS 12 QT 358 T 53 QTc 416 Conclusion Sinus rhythm...normal P axis, V-rate 60- 99 Probable left atrial enlargement...P >50mS, <-0.10mV V1 sinus rhythm at 81, normal axis, no acute ischemic changes, nondiagnostic EKG
--- NOTE | 2020-12-31 10:57 | W.ED.GENAD ---
Discharge Plan Disposition Patient Disposition: HOME Condition: Stable Discharge Details Clinical Impression: UTI (urinary tract infection), Heart palpitations Primary Care Provider: Mandy Orta ED Provider: Amarilys Tijerina Home Meds and New Rx's Prescriptions: New cephalexin 500 mg capsule 500 mg PO BID Qty: 10 RF: 0 Continued cranberry extract 200 MG capsule 200 mg PO BID RF: 0 ibuprofen [Advil] 200 MG tablet 1 - 2 tab PO PRN PRNRF: 0 calcium-vitamin D3-vitamin K 1 EACH tablet,chewable 1 tab PO BID RF: 0 biotin 1 MG tablet 5,000 mcg PO DAILY RF: 0 methimazole 5 MG tablet 0.5 tab PO .QAM RF: 0 docusate sodium 100 MG tablet 100 mg PO DAILY RF: 0 Discharge Instructions Instructions: Heart Palpitations (ED), Urinary Tract Infection in Women (ED) Additional Instructions: Please return immediately to the emergency department if you develop any new or worsening symptoms, if your condition does not improve as expected, or if you become otherwise concerned. It is extremely important that you call soon as possible to make an appointment to be seen in follow-up for this visit by your primary care doctor. Referrals: Mandy Orta [Primary Care Provider] - Discharge Data Discharge Date/Time-TO BE ENTERED AT DEPARTURE: 12/31/20 15:40 Medical Decision Making Arianne Wilson is a 80-year-old woman with a history of hypertension, hypothyroidism who presented to emergency department with sensation of feeling intermittently hot and cold without measured fever, generalized weakness, and intermittent sensation of heart racing since 12/28/2020; patient reported sensation of heart racing while here on the monitor and while in normal sinus rhythm. On exam patient is very well and nontoxic-appearing. Sinus rhythm 80 on the monitor without ectopy. Benign cardiopulmonary exam. Concern for metabolic/lyte disturbance, occult infection, other. Less likely acute coronary syndrome, arrhythmia, pulmonary embolism. Exam/history at this time is not consistent with acute aortic process, acute emergent intra-abdominal process. EKG is nondiagnostic. Plan for chest x-ray, screening labs, IV fluid hydration, telemetry. Will monitor and reassess. If initial work-up negative, plan for repeat troponin and EKG. Labs reviewed, WBC 6.38, lactate 1.7, anion gap 9.6, troponin normal, urine shows leukoesterase and WBCs, d-dimer neg when age-adjusted. Unclear if UTI is etiology of patient's symptoms, will treat with Keflex. Plan for 48-hour Holter monitor for palpitations, at one point patient did show sinus tachycardia to 110 on monitor and rhythm strip for brief period, less than 1 minute, patient did report that this felt similar to palpitation she has been experiencing. Awaiting repeat troponin, EKG. Rpt trop, EKG okay. Plan for holter monitor and outpt f/u. Rx keflex for UTI. I had a lengthy discussion with Patient regarding return to emergency department precautions, home care, and importance of outpatient follow-up. Pt verbalizes understanding of the plan and is amenable. Patient discharged to home with clear plan for outpatient follow-up. All questions were answered. Disposition decision was made weighing the risks and benefits of hospitalization versus outpatient treatment, the risk for further decompensation, and the patient's wishes. Medical Records Medical records reviewed: Yes I reviewed the patient's medical records. Imaging Data Radiologic Study: Attestation: I personally reviewed and interpreted this imaging study as follows: Radiologist's impression: EXAM: XR CHEST 2V PA LATERAL CLINICAL HISTORY: palpitations TECHNIQUE: 2D digital imaging was performed. COMPARISON: No exams were available for comparison FINDINGS: MEDIASTINUM: Normal. HEART: Normal. PULMONARY VASCULATURE: Normal. LUNGS: Clear. PLEURAL SPACE: No pleural effusion or pneumothorax. BONE:Degenerative changes in the spine IMPRESSION: No acute pulmonary findings. Lab Data Lab results reviewed: Yes I reviewed the patient's lab results. Labs: 12/31/20 11:28 Urine - Reflex from Ua Urine Culture - Final Group B Streptococcus Gram Positive Alanna,Mixed Laboratory Tests Range/Units 12/31/20 12/31/20 12/31/20 11:00 11:00 11:00 WBC (4.4-10.8) 10^3/uL 6.38 RBC (3.93-5.22) 10^6/uL 4.15 Hgb (11.2-15.7) g/dL 12.9 Hct (36.0-46.0) % 38.8 MCV (80-95) fL 93.5 MCH (27.0-33.0) pg 31.1 MCHC (32.0-36.0) % 33.2 RDW (11.7-14.6) % 12.9 Plt Count (130-400) 10^3/uL 229 MPV (8.0-11.0) fL 11.1 H Immature Gran % 0.3 Neutrophils % 74.2 Lymphocytes % 18.5 Monocytes % 6.4 Eosinophils % 0.3 Basophils % 0.3 Nucleated RBC % % 0 Absolute Neutrophils (1.2-6.7) 10^3/uL 4.73 Absolute Lymphocytes (1.2-3.4) 10^3/uL 1.18 L Absolute Monocytes (0.1-0.8) 10^3/uL 0.41 Absolute Eosinophils (0.0-0.7) 10^3/uL 0.02 Absolute Basophils (0.0-0.2) 10^3/uL 0.02 D-Dimer (<500) ng/mlFEU VBG Lactate (0.6-1.4) mmol/L 1.7 H Sodium (136-145) mmol/L 138 Potassium (3.5-5.1) mmol/L 3.9 Chloride (98-107) mmol/L 102 Carbon Dioxide (21.0-32.0) mmol/L 26.4 Anion Gap (3-11) mmol/L 9.6 BUN (7-18) mg/dL 28 H Creatinine (0.55-1.02) mg/dL 0.9 Estimated GFR/1.73 m2 (mL/min/1.73m2) >= 60.00 Glucose (74-106) mg/dL 123 H Calcium (8.5-10.1) mg/dL 9.2 Total Bilirubin (0.2-1.0) mg/dL 0.3 AST (15-37) U/L 16 ALT (14-59) U/L 21 Alkaline Phosphatase (46-116) U/L 91 Troponin I (<0.06) ng/mL < 0.05 Total Protein (6.4-8.2) g/dL 7.5 Albumin (3.4-5.0) g/dL 4.0 TSH (0.36-3.74) uIU/mL 1.10 Urine Color (Yellow) Urine Clarity (Clear) Urine pH (5-8) Ur Specific Mora (1.005-1.025) Urine Protein (Negative) mg/dL Urine Ketones (Negative) mg/dL Urine Blood (Negative) Urine Nitrite (Negative) Urine Bilirubin (Negative) Urine Urobilinogen (Up TO 0.2) EU/dL Ur Leukocyte Esterase (Negative) Urine RBC (0-2) HPF Urine WBC (0-5) HPF Ur Epithelial Cells (Negative) HPF Urine Crystals (Negative) HPF Urine Bacteria (Negative) HPF Urine Casts (Negative) LPF Urine Mucus (Negative) Ur Culture Indicated? Urine Glucose (Negative) mg/dL Range/Units 12/31/20 12/31/20 12/31/20 11:00 11:28 14:10 WBC (4.4-10.8) 10^3/uL RBC (3.93-5.22) 10^6/uL Hgb (11.2-15.7) g/dL Hct (36.0-46.0) % MCV (80-95) fL MCH (27.0-33.0) pg MCHC (32.0-36.0) % RDW (11.7-14.6) % Plt Count (130-400) 10^3/uL MPV (8.0-11.0) fL Immature Gran % Neutrophils % Lymphocytes % Monocytes % Eosinophils % Basophils % Nucleated RBC % % Absolute Neutrophils (1.2-6.7) 10^3/uL Absolute Lymphocytes (1.2-3.4) 10^3/uL Absolute Monocytes (0.1-0.8) 10^3/uL Absolute Eosinophils (0.0-0.7) 10^3/uL Absolute Basophils (0.0-0.2) 10^3/uL D-Dimer (<500) ng/mlFEU 599 H VBG Lactate (0.6-1.4) mmol/L Sodium (136-145) mmol/L Potassium (3.5-5.1) mmol/L Chloride (98-107) mmol/L Carbon Dioxide (21.0-32.0) mmol/L Anion Gap (3-11) mmol/L BUN (7-18) mg/dL Creatinine (0.55-1.02) mg/dL Estimated GFR/1.73 m2 (mL/min/1.73m2) Glucose (74-106) mg/dL Calcium (8.5-10.1) mg/dL Total Bilirubin (0.2-1.0) mg/dL AST (15-37) U/L ALT (14-59) U/L Alkaline Phosphatase (46-116) U/L Troponin I (<0.06) ng/mL < 0.05 Total Protein (6.4-8.2) g/dL Albumin (3.4-5.0) g/dL TSH (0.36-3.74) uIU/mL Urine Color (Yellow) Yellow Urine Clarity (Clear) Clear Urine pH (5-8) 5.5 Ur Specific Mora (1.005-1.025) 1.025 Urine Protein (Negative) mg/dL Negative Urine Ketones (Negative) mg/dL Negative Urine Blood (Negative) Negative Urine Nitrite (Negative) Negative Urine Bilirubin (Negative) Negative Urine Urobilinogen (Up TO 0.2) EU/dL 0.2 Ur Leukocyte Esterase (Negative) Moderate H Urine RBC (0-2) HPF 0-2 Urine WBC (0-5) HPF 10-20 H Ur Epithelial Cells (Negative) HPF Few Urine Crystals (Negative) HPF Negative Urine Bacteria (Negative) HPF Many Urine Casts (Negative) LPF Negative Urine Mucus (Negative) Negative Ur Culture Indicated? Yes Urine Glucose (Negative) mg/dL Negative ECG Data Attestation: I personally reviewed and interpreted this ECG (s) as follows: Interpretation: EKG shows sinus rhythm at 81, normal axis, no acute ischemic changes, nondiagnostic EKG Repeat EKG 14:13 shows sinus rhythm at 75, normal axis, no major change from prior, nondiagnostic EKG HPI General Mode of arrival: ambulatory. Date/Time Provider Initiated Documentation: 12/31/20 10:40. Limitations to Documentation: no limitations. Information obtained by: patient, RN notes reviewed and old records reviewed. HPI Narrative: Arianne Saxena is a 80-year-old woman with history of hypertension, hypothyroidism presenting to emergency department with palpitations and generalized weakness. Patient reports that since 12/28/2020 she has had intermittent sensation of being hot and sweaty and then cold, also with a sensation that her heart is racing intermittently and generalized weakness. Patient reports that she has no pain other than chronic pain from her arthritis. She denies any measured fevers, and states that she does take her temperature at home quite often. Patient reports that sensation of racing heart has no known inciting factors or modifiers. Patient reports that she did have that sensation upon her arrival to the emergency department and while on the monitor here, however that has gradually improved. Patient states that her symptoms may be attributed to anxiety, as she lives alone and sometimes feels anxious about her health. Patient is also concerned that her symptoms may be related to thyroid disease. She states that she used to take propranolol for heart palpitations and anxiety, but stopped several years ago. She is wondering if she perhaps needs to be started back on this medication. She denies cough, shortness of breath, vomiting, diarrhea, numbness, focal weakness, rash, lower extremity swelling. Patient states that she has been eating and drinking as usual. She denies alcohol, tobacco, recreational drug use. Related Data Home Medications Medication Instructions Recorded Confirmed calcium-vitamin D3-vitamin K 1 tab PO BID 02/25/13 12/31/20 ibuprofen [Advil] 1 - 2 tab PO PRN PRN 02/25/13 12/31/20 biotin 5,000 mcg PO DAILY 12/23/13 12/31/20 cranberry extract 200 mg PO BID 05/02/16 12/31/20 docusate sodium 100 mg PO DAILY 04/16/18 12/31/20 methimazole 0.5 tab PO .QAM 04/16/18 12/31/20 cephalexin 500 mg PO BID #10 cap 12/31/20 Previous Rx's Medication Instructions Recorded cephalexin 500 mg PO BID #10 cap 12/31/20 Allergies Allergy/AdvReac Type Severity Reaction Status Date / Time No Known Drug Allergies Allergy Unknown unknown Unverified 12/31/20 10:48 General Stated Complaint: Palpitatns UMAIR: 3 Review of Systems Narrative: Constitutional: denies fevers, reports generalized weakness Eyes: denies eye pain ENT: denies ear pain, dental pain, sore throat Cardiovascular: denies chest pain, edema, reports palpitations Respiratory: denies SOB, cough GI: denies abdominal pain, vomiting, diarrhea : denies flank pain MSK: denies back pain, neck pain, myalgias, reports chronic unchanged arthritis pain Skin: denies rash Neuro: denies headaches, numbness, weakness [facility] Medical History (Updated 12/31/20 @ 14:52 by Amarilys Tijerina MD) Anatomical narrow angle of right eye Cortical cataract of left eye Cortical cataract of right eye Depression Glaucoma Graves disease Hiatal hernia Nuclear sclerotic cataract of left eye Nuclear sclerotic cataract of right eye Ocular migraine Psoriatic arthritis Surgical History S/P medial meniscus repair of right knee Status post cataract extraction and insertion of intraocular lens of left eye (10/22/18) Status post cataract extraction and insertion of intraocular lens of right eye (10/11/18) Family History Mother Diabetes Father Neoplasm LUNG Sister Neoplasm LUNG Brother Heart disease Brother No problems noted. Grandfather No problems noted. Grandfather No problems noted. Grandmother Diabetes Personal history of malignant neoplasm UTERINE Grandmother No problems noted. Social History Smoking/Tobacco Use Status: Never Smoking risk assessment performed?: Yes Drug use: Never Current gender identity: female Do you feel safe at home: Yes Do you feel safe in your relationship?: Yes History History 0 Para Hx # Term Pregnancies Multiple births Hx # Pregnancies Ectopic pregnancies AB induced Hx Number of Living Children AB spontaneous Exam Narrative Exam Narrative: Constitutional: well and [id number], pleasant, conversing normally HENT: head atraumatic/normocephalic/normal inspection, mucous membranes moist Eyes: conjunctiva normal, sclera normal, pupils 3mm b/l Neck: no stridor, normal ROM, trachea midline Chest: normal inspection Resp: normal work of breathing, speaking in full sentences Cardio: normal rate, normal rhythm GI: abdomen soft, non-tender, non-distended Back: normal inspection, no rash Skin: warm, dry, normal color, no rash Neuro: alert, not altered, grossly non-focal, normal tone Ext: no edema, no posterior calf tenderness to palpation Psych: normal mood, normal affect, normal behavior Course Vital Signs Vital signs: Vital Signs Temperature 36.5 C 12/31/20 10:35 Pulse 97 H 12/31/20 10:35 Respiratory Rate 16 12/31/20 10:35 Blood Pressure 155/86 H 12/31/20 10:35 Pulse Oximetry 100 12/31/20 10:35 Temperature 36.5 C 12/31/20 10:35 Temperature Source Skin 12/31/20 10:35 Pulse 97 H 12/31/20 10:35 Respiratory Rate 16 12/31/20 10:35 Blood Pressure 155/86 H 12/31/20 10:35 Blood Pressure Position Sitting 12/31/20 10:35 Pulse Oximetry 100 12/31/20 10:35 Oxygen Delivery Method Room Air 12/31/20 10:35 Oxygen Flow Rate 0 12/31/20 10:35 Pain Level 0 12/31/20 10:35
--- NOTE | 2020-12-31 11:15 | DI.RAD_ITS ---
EXAM: XR CHEST 2V PA LATERAL CLINICAL HISTORY: palpitations TECHNIQUE: 2D digital imaging was performed. COMPARISON: No exams were available for comparison FINDINGS: MEDIASTINUM: Normal. HEART: Normal. PULMONARY VASCULATURE: Normal. LUNGS: Clear. PLEURAL SPACE: No pleural effusion or pneumothorax. BONE:Degenerative changes in the spine IMPRESSION: No acute pulmonary findings. DATA REPOSITORY: RADIATION DOSE DELIVERED:
[2020-12-31 11:26] LABS: Lactate 1.7 mmol/L (0.6-1.4)
[2020-12-31 11:33] LABS: Abs Immature Grans 0.02 10^3/uL (0.0-0.06); Absolute Basophil Count 0.02 10^3/uL (0.0-0.2); Absolute Eosinophil Count 0.02 10^3/uL (0.0-0.7); Absolute Lymphocyte Count 1.18 10^3/uL (1.2-3.4); Absolute Monocyte Count 0.41 10^3/uL (0.1-0.8); Absolute Neutrophil Count 4.73 10^3/uL (1.2-6.7); Basophils % 0.3; Eosinophils % 0.3; HCT 38.8 % (36.0-46.0); HGB 12.9 g/dL (11.2-15.7); Immature Grans % 0.3; Lymphocytes % 18.5; MCH 31.1 pg (27.0-33.0); MCHC 33.2 % (32.0-36.0); MCV 93.5 fL (80-95); MPV 11.1 fL (8.0-11.0); Monocytes % 6.4; Neutrophils % 74.2; Nucleated RBC 0 %; Platelet Count 229 10^3/uL (130-400); RBC 4.15 10^6/uL (3.93-5.22); RDW 12.9 % (11.7-14.6); RDW-SD 44.2 fL; WBC 6.38 10^3/uL (4.4-10.8)
[2020-12-31 11:48] LABS: ALT 21 U/L (14-59); AST 16 U/L (15-37); Alkaline Phosphatase 91 U/L (46-116); Anion Gap 9.6 mmol/L (3-11); BUN 28 mg/dL (7-18); Bilirubin, Total 0.3 mg/dL (0.2-1.0); CO2 26.4 mmol/L (21.0-32.0); CREATININE 0.9 mg/dL (0.55-1.02); Calcium 9.2 mg/dL (8.5-10.1); Chloride 102 mmol/L (98-107); Glucose 123 mg/dL (74-106); Potassium 3.9 mmol/L (3.5-5.1); Sodium 138 mmol/L (136-145); Total Protein 7.5 g/dL (6.4-8.2)
[2020-12-31 11:49] LABS: Troponin I < 0.05 ng/mL (<0.06)
[2020-12-31 11:55] LABS: D-Dimer 599 ng/mlFEU (<500)
[2020-12-31 12:08] LABS: Bilirubin Negative (Negative); Blood Negative (Negative); Clarity Clear (Clear); Glucose Negative (Negative); Ketones Negative (Negative); Leukocyte Esterase Moderate (Negative); Nitrite Negative (Negative); Specific Gravity 1.025 (1.005-1.025); Urobilinogen 0.2 EU/dL (Up TO 0.2); pH 5.5 (5-8)
[2020-12-31 12:15] LABS: Bacteria Many HPF (Negative); C & S Indicated? Yes; Casts Negative LPF (Negative); Crystals Negative HPF (Negative); Epithelial Cells Few HPF (Negative); Mucus Negative (Negative); RBC 0-2 HPF (0-2)
[2020-12-31] MEDS: Normal Saline 1,000 ML 1000 ML IV (12:23)
--- NOTE | 2020-12-31 14:00 | RT.EKG_ITS ---
APPROVED REPORT Exam: Resting ECG Patient Location: E HR:75 bpm ECG Measurements Heart Rate 75 AXIS DC 204 P 52 QRSd 87 QRS 13 QT 385 T 47 QTc 432 Conclusion Sinus rhythm...normal P axis, V-rate 60- 99 Probable left atrial enlargement...P >50mS, <-0.10mV V1 sinus rhythm at 75, normal axis, no major change from prior performed today, nondiagnostic EKG
[2020-12-31] MEDS: Cephalexin 500 MG CAP PO (14:14)
--- NOTE | 2020-12-31 14:30 | HOLTER_ITS ---
APPROVED REPORT Exam Type: HOLTER MONITOR APPLICATION Patient Location: E Conclusion This was a 48-hour Holter monitor reportedly ordered for symptoms of palpitations Rhythm throughout was sinus with an average heart rate of 68. Minimum was 48, maximum 128 There were very rare atrial and ventricular ectopic beats There was no atrial fibrillation, no pauses greater than 3 seconds, no high-grade AV block
[2020-12-31 14:34] LABS: Troponin I < 0.05 ng/mL (<0.06)
== END 2020-12-31 15:40 | disposition home or self-care (01) ==
PROVIDERS: Emergency Provider Student in an Organized Health Care Education/Training Program; PCP Family Medicine
DX: R00.2 Palpitations (principal); N39.0 Urinary tract infection, site not specified
CPT/HCPCS: 36415; 80053; 87077; 93005; 96360; 99285; 71046; 81003; 81015; 83605; 84443; 84484; 85025; 85379; 87086; 93010; 93225; 99284

== ENCOUNTER 2020-12-31 14:55 | Outpatient (RCR) | payer MEDICARE, SELFPAY | END 2021-01-23 23:59 | disposition home or self-care (01) | LOC: RT 14:55 | PROVIDERS: PCP Family Medicine; Visit Provider Family Medicine | DX: R00.2 Palpitations (principal) | CPT/HCPCS: 93227; 93225; 93226 ==

== ENCOUNTER 2021-01-25 09:10 | Outpatient (REF) | payer MEDICARE, SELFPAY ==
[2021-01-25 13:55] LABS: TSH (W/Ref FT4) 0.76 uIU/mL (0.36-3.74)
== END 2021-01-25 09:11 | disposition home or self-care (01) ==
LOC: NCHCN 09:10
PROVIDERS: PCP Family Medicine; Visit Provider Family Medicine
DX: E05.00 Thyrotoxicosis with diffuse goiter without thyrotoxic crisis or storm (principal)
CPT/HCPCS: 84443

== ENCOUNTER 2021-04-01 11:36 | Outpatient (CLI) | payer MEDICARE, SELFPAY ==
--- NOTE | 2021-04-01 08:15 | DI.RAD_ITS ---
Exam(s) XR KNEE RT 3V AP,LAT,KEYON EXAM: XR KNEE RT 3V AP,LAT,KEYON CLINICAL HISTORY: RIGHT KNEE PAIN. TECHNIQUE: 2D digital imaging was performed. COMPARISON: CR RIGHT KNEE 3 VIEWS from 02/19/2018 FINDINGS: In the medial femoral tibial joint there is moderate joint space narrowing and mild periarticular spu rring. The lateral femoral tibial joint is well maintained. Mild spurring is seen at the posterior patella. There is an enthesophyte at the superior patella. The bones are intact and normally minera lized. The soft tissues are unremarkable. There is atherosclerosis. IMPRESSION: Degenerative changes of the right knee which have progressed since the prior examination from 02/20/20 18. DATA REPOSITORY: RADIATION DOSE DELIVERED:
== END 2021-04-01 11:37 | disposition home or self-care (01) ==
LOC: DIORS 11:36
PROVIDERS: PCP Family Medicine; Referring Provider Family Medicine; Visit Provider Student in an Organized Health Care Education/Training Program
DX: M17.11 Unilateral primary osteoarthritis, right knee (principal)
CPT/HCPCS: 73562; 99213

== ENCOUNTER 2021-05-07 11:12 | Outpatient (CLI) | payer MEDICARE, SELFPAY ==
--- NOTE | 2021-05-07 11:00 | DI.RAD_ITS ---
Exam(s) XR STANDING ALIGNMENT EXAM: XR STANDING ALIGNMENT CLINICAL HISTORY: right knee pain. TECHNIQUE: 2D digital imaging was performed. COMPARISON: CR XR KNEE RT 3V AP,LAT,KEYON from 04/01/2021 CR XR KNEE RT 3V AP,LAT,KEYON from 04/01/2021 FINDINGS: Again noted is advanced narrowing of the medial compartment of the right knee and there is an indenta tion on the medial femoral condyle articular surface which is probably an osteochondral defect. Also marginal osteophytes at this level. There is no significant narrowing of the medial compartment of the opposite-left knee. Lateral compartments of both knees exhibit normal height. Mild narrowing of both hip joints noted. No prominent degenerative changes in the hips. Ankles unre markable. Bone density normal. No osseous lesions. IMPRESSION: DATA REPOSITORY: RADIATION DOSE DELIVERED:
--- NOTE | 2021-05-07 11:15 | DI.RAD_ITS ---
Exam(s) XR KNEE RT 1V EXAM: XR KNEE RT 1V CLINICAL HISTORY: right knee pain. TECHNIQUE: 2D digital imaging was performed. COMPARISON: CR XR KNEE RT 3V AP,LAT,KEYON from 04/01/2021 FINDINGS: Single merchant's sunrise view of the right knee compared to 04/01/2021 There is no significant narrowing of the patellofemoral compartment on this view. Also no patellar d isplacement. No obvious fracture. IMPRESSION: DATA REPOSITORY: RADIATION DOSE DELIVERED:
== END 2021-05-07 11:13 | disposition home or self-care (01) ==
PROVIDERS: PCP Family Medicine; Referring Provider Family Medicine; Visit Provider Student in an Organized Health Care Education/Training Program
DX: M17.11 Unilateral primary osteoarthritis, right knee (principal); W19.XXXS Unspecified fall, sequela; M25.561 Pain in right knee
CPT/HCPCS: 99214; 99215; 73560; 77073

== ENCOUNTER 2021-05-28 03:03 | Outpatient (CLI) | payer MEDICARE, SELFPAY ==
[2021-05-28 11:12] LABS: Source Nasal/Nares
[2021-05-28 13:12] LABS: COVID-19 PCR Negative (Negative)
== END 2021-05-28 03:04 | disposition home or self-care (01) ==
LOC: LBO 03:03
PROVIDERS: PCP Family Medicine; Visit Provider Student in an Organized Health Care Education/Training Program
DX: Z20.822 Contact with and (suspected) exposure to COVID-19 (principal); Z01.818 Encounter for other preprocedural examination
CPT/HCPCS: 87635

== ENCOUNTER 2021-05-30 06:23 | Day surgery (SDC) | payer MEDICARE, SELFPAY ==
--- NOTE | 2021-05-29 14:10 | W.ANESPRE ---
General Info Date of Service Date Performed: 05/30/21 Height: 5 ft Weight: 60.781 kg Body Mass Index (BMI): 26.2 Surgical Procedure: Operation Date: 05/30/21 08:00 Proposed Procedures Side Surgeon p Knee Uni Compartmental Right Awais Weiss MD Meds Allergies and Home Medications Allergies Allergy/AdvReac Type Severity Reaction Status Date / Time No Known Drug Allergies Allergy Unknown unknown Unverified 05/30/21 06:34 Home Medication Medication Instructions Recorded calcium-vitamin D3-vitamin K 1 tab PO BID 02/25/13 ibuprofen [Advil] 1 - 2 tab PO PRN PRN 02/25/13 biotin 5,000 mcg PO DAILY 12/23/13 cranberry extract 200 mg PO BID 05/02/16 docusate sodium 100 mg PO DAILY 04/16/18 methimazole 0.5 tab PO .QAM 04/16/18 Current Visit Medications: Current Medications Generic Name Dose Route Start Last Admin Trade Name Freq PRN Reason Stop Dose Admin Acetaminophen 1,000 mg 05/30/21 06:00 Acetaminophen 500 Mg Tab PO 05/30/21 16:00 PREOP PADILLA Celecoxib 400 mg 05/30/21 06:00 Celecoxib 200 Mg Cap PO 05/30/21 16:00 PREOP PADILLA Gabapentin 300 mg 05/30/21 06:00 Gabapentin 300 Mg Cap PO 05/30/21 16:00 PREOP PADILLA Tranexamic Acid 1,000 mg/ 60 mls @ 360 mls/hr 05/30/21 06:00 Sodium Chloride IVPB 05/30/21 16:00 PREOP PADILLA Ringer's Solution 1,000 mls @ 100 mls/hr 05/30/21 06:00 IV 06/28/21 23:59 INFUSION PADILLA Cefazolin Sodium/Dextrose 2 gm in 50 mls @ 100 mls/hr 05/30/21 06:00 Ancef Duplex IVPB 05/30/21 16:00 PREOP PADILLA IV Miscellaneous Supplies 1 each 05/30/21 06:00 Iv Access IV 06/28/21 23:59 DIRECTED PADILLA Sodium Chloride 0 ml 05/30/21 06:00 Normal Saline Flush 10 Ml Syr IV 06/28/21 23:59 PRN PRN Sodium Chloride 0 ml 05/30/21 06:00 Normal Saline 10 Ml Vial IJ 06/28/21 23:59 DIRECTED PRN Sterile Water 0 ml 05/30/21 06:00 Water,Injection,Sterile 10 Ml Vial IJ 06/28/21 23:59 DIRECTED PRN PFSH Active Problems Active Problems: Problem Status Onset Code Increased endometrial stripe thickness 02/02/14 R93.89 Psoriatic arthropathy L40.50 Polyp of colon K63.5 Ocular migraine G43.109 Hyperthyroidism 02/22/14 E05.90 Hiatal hernia K44.9 Glaucoma H40.9 Essential hypertension 11/08/13 I10 Duodenitis 12/23/13 K29.80 Diverticulosis of colon without diverticulitis K57.30 Chronic bilateral low back pain without sciatica 03/04/16 M54.5, G89.29 Carpal tunnel syndrome G56.00 Primary osteoarthritis of right knee M17.11 UTI (urinary tract infection) N39.0 Heart palpitations R00.2 Atrial fibrillation 09/24/01 I48.91 Status post cataract extraction and insertion of intraocular lens of left eye 10/22/18 Z98.42, Z96.1 Status post cataract extraction and insertion of intraocular lens of right eye 10/11/18 Z98.41, Z96.1 Medical History Medical History (Updated 05/29/21 @ 10:00 by Jack Dixon) A-fib pt. states she does not have a-fib, stated they discovered it was related to her Graves Disease Anatomical narrow angle of right eye Breast lump (09/24/97) Cortical cataract of left eye Cortical cataract of right eye Depression Dysfunctional uterine bleeding (09/24/97) Glaucoma Graves disease Hiatal hernia Hx of fracture of nose pt. stated when she was young she fractured her nose and doesn't breathe well out of left nostril but if she places breathe right strip on her nose she can. 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 Surgical History Surgical History History of intestinal surgery History of right hemicolectomy S/P medial meniscus repair of right knee Status post cataract extraction and insertion of intraocular lens of left eye (10/22/18) Status post cataract extraction and insertion of intraocular lens of right eye (10/11/18) Tobacco Smoking/Tobacco Use Status: Never Alcohol Alcohol Intake: never Substance Use Substance use: Never Substance use type: does not use Prental History History 0 Para Hx # Term Pregnancies Multiple births Hx # Pregnancies Ectopic pregnancies AB induced Hx Number of Living Children AB spontaneous Vital Signs and Lab Results Lab Results Blood Type / Crossmatch: No Data to Display Complete Blood Count: No Data to Display Complete Metabolic Panel: No Data to Display Liver Function Panel: No Data to Display Coagulation Panel: No Data to Display Cardiac Panel: No Data to Display Arterial Blood Gas: No Data to Display Venous Blood Gas: No Data to Display Pancreas Panel: No Data to Display Thyroid Panel: No Data to Display Infectious Disease: Coronavirus (COVID-19)(PCR) Negative (Negative) 05/28/21 09:52 05/28/21 Coronavirus 2019 Source Nasal/Nares 05/28/21 09:52 05/28/21 Blood Cultures: No Data to Display Toxicology Panel: No Data to Display Imaging and Studies Imaging and Studies EKG Summary: 05/2019: sinus rhythm. Carotid Artery Summary:: 05/2015: no significant stenosis. Anesthesia Assessment and Plan Anesthesia History Personal History: No History of Anesthesia Complications Family History: No Family History of Anesthesia Complications Exercise Tolerance Exercise Tolerance: Metabolic Equivalents>4 Cardiac & Pulmonary Exam Cardiac Exam: Normal S1/S2 Heart Sounds Pulmonary Exam: Clear Bilateral Breath Sounds Airway Exam Known Difficult Airway: No Mallampati Class: 2 Mouth Opening: Narrow (< 3cm) Thyromental Distance: Less than 3 cm Neck Range of Motion: Limited ROM Neck Circumference: Normal Teeth Condition: Removable Dentures/Plates Lower and Edentulous ASA Classification ASA Score: ASA 2 Emergency Case?: No NPO Status NPO Status: NPO Clears >2 hours, Solids >8 hours Anesthesia Plan Resuscitation Status: Full Code Anesthesia Technique: Spinal Anesthesia Airway Planned: Natural Airway Pain Management: Surgeon and patient request nerve block Monitors Used: Standard Monitors Preoperative Comments:: 80 yo female for right partial knee. sig PMHx hyperthyroid (stable on methimazole), well controlled GERD. discussed risk, benifits, and alternitives of spinal vs general anesthesia. Would like to do spinal with GA given duration of case. Previous LMA 3
[2021-05-30] VITALS (9 sets, daily range): BP systolic 106–140; BP diastolic 51–70; PULSE 60–74; RESP 14–20; TEMP 36–36.6; O2SAT 95–100; BMI 26.2
--- NOTE | 2021-05-30 07:15 | DI.RAD_ITS ---
Exam(s) XR KNEE RT 2V AP,LAT EXAM: XR KNEE RT 2V AP,LAT CLINICAL HISTORY: Postop. TECHNIQUE: 2D digital imaging was performed. COMPARISON: CR XR KNEE RT 1V from 05/07/2021 FINDINGS: Postop portable AP supine and cross-table lateral views of the right knee reveals satisfactory positi on alignment of the components of the newly placed medial hemiarthroplasty. No fracture or loosening evident. IMPRESSION: DATA REPOSITORY: RADIATION DOSE DELIVERED:
[2021-05-30] MEDS: Acetaminophen 500 MG TAB 1000 MG PO (07:19)
[2021-05-30] MEDS: Gabapentin 300 MG CAP PO (07:20)
[2021-05-30] MEDS: Lactated Ringers 1,000 ML 100 ML IV (07:20)
[2021-05-30] MEDS: Celecoxib 200 MG CAP 400 MG PO (07:25)
--- NOTE | 2021-05-30 07:52 | W.ANESPOSTOP ---
Postoperative Evaluation Date, Time and Location Date Performed: 05/30/21 Time Performed: 12:36 Patient Location: Day Surgery Unit Vital Signs Most Recent Imported Vital Signs: Most Recent Vital Signs Temp Pulse Resp BP Pulse Ox 36.1 C L 60 16 106/54 L 98 05/30/21 12:13 05/30/21 12:13 05/30/21 12:13 05/30/21 12:13 05/30/21 12:13 Temp Pulse Resp BP Pulse Ox 36.6 C 70 16 138/62 98 05/30/21 06:38 05/30/21 06:38 05/30/21 06:38 05/30/21 06:38 05/30/21 06:38 Pain Score Most Recent Pain Score: Most Recent Pain Score Pain Level 0 05/30/21 06:38 Assessment Mental Status: Awake (Alert & Oriented to Patient Baseline) Airway and Respiratory Function: Patent airway with normal (patient baseline) respiratory exam Cardiovascular Function: Hemodynamically Stable Hydration Status: Adequately Hydrated Nausea & Vomiting: No Nausea or Vomiting Pain: Pain is tolerable per patient Peripheral Nerve Block: Regional nerve block not resolved at time of post operative discharge
--- NOTE | 2021-05-30 07:53 | W.ANESNERVE ---
Nerve Block Single Injection Procedure Date and Time Date Performed: 05/30/21 Procedure Start: 07:30 Location Where Procedure Performed Procedure Location: PACU Reason Performed: Postoperative Analgesia Requesting Provider: Awais Weiss Timeout Performed Timeout Performed: Yes Monitoring Used ECG, Blood Pressure and SpO2 Sterility Sterility: Hand Hygiene, Surgical Cap, Surgical Mask, Sterile Gloves and Chlorhexidine Sedation Given During Procedure Sedation Given (Indicate Dose Given): No Sedation given Patient Mental Status Patient Mental Status: Awake Nerve Block 1st Nerve Block: Laterality: Right Block Type: Adductor Canal Needle / Catheter Used: 100mm SonoPlex II Local Anesthetic Bolus (Indicate Dose Given): Lidocaine used for local infiltration of skin, Injected in 3-5ml increments after negative blood aspiration and Bupivacaine 0.375% Dose:: 10 mL Additives (Indicate Dose Given): None Ultrasound: Sterile probe cover and gel used Ultrasound Image Saved?: Yes Nerve Stimulator: Not Used Paresthesia: None Procedure Tolerated: No Complications Procedure Outcome: Successful Performed By: Marleny Rodriguez Supervised By: todd leary
[2021-05-30] MEDS: ceFAZolin 2 GM/50 ML BAG IVPB ×2 (08:10→12:28)
--- NOTE | 2021-05-30 10:03 | ROE_ITS ---
Date of service: 05/30/21 Time of Service: 08:30 Operative Note Operative Note DATE OF PROCEDURE: 05/30/21 PRE-OP DIAGNOSIS: 1. Right knee medial compartmental arthritis POST-OP DIAGNOSIS: same PROCEDURE: 1. Right knee medial unicompartmental arthroplasty, CPT # 82683 The digital sales assistant was medically required as this procedure involves retraction, protection of neurovascular structures, and manipulation of multiple instruments and implants at the same time, which cannot be done without a skilled digital sales assistant. SURGEON: Awais Weiss TERRITORY SALES PROFESSIONAL: Bev Rene ANESTHESIA TYPE: Local By Surgeon, General LMA/ETT and Primary Nerve Block Refer to Anesthesia Record ESTIMATED BLOOD LOSS: 75 PATHOLOGY: none sent TOURNIQUET TIME: 35 COMPLICATIONS: None Patient was transported to: PACU Patient's condition: stable Implants: DePuy Sigma HP partial knee size 3 metal-backed tibial tray, 7 mm tibial insert fixed bearing, size 4 femoral component Indications: Please see complete medical record for details. Findings: Isolated medial compartment arthritis Procedure Description: The patient was taken to the operating room and transferred to the operating room table. Spinal anesthesia was attempted, but general anesthesia was induced. All bony prominences were well-padded. Preoperative antibiotics and 1 g TXA were administered. A tourniquet was placed loosely over padding high on the patient's thigh. The knee and lower extremity were prepped and draped in the usual sterile fashion. The correct patient, procedure, and side of the procedure were all verified prior to incision. A slightly medial of midline longitudinal approach was used to the knee extending from the superior pole the patella to the distal aspect of the tibial tubercle. The quadriceps tendon, patella borders, and patellar tendon were exposed. A full-thickness arthrotomy was performed starting splitting the quadriceps tendon and leaving a sleeve of tissue on the medial aspect of the patella and taking care to progress along the medial margin the patellar tendon. The MCL was elevated off the proximal medial tibia. The tibial alignment jig was set in place on the anterior medial aspect of the tibia and carefully adjusted to achieve proper alignment in the coronal and sagittal planes. Reciprocating saw was used to create the vertical cut at the medial aspect of the medial tibial eminence taking care to protect the ACL ligament footprint. The transverse cut was then done using the microsagittal saw on the jig taking care to retract and protect the MCL. The bone piece and cut were inspected and found to be appropriate for patient anatomy. A box rasp was used to clean up the cut especially the L component. The 7 mm spacer block was inserted and found to have good stability in flexion but slightly too much laxity in extension and about 30 degrees of flexion. The 8 mm spacer block had more appropriate valgus stability with a couple millimeters of joint space gapping in extension and slight flexion while not preventing any terminal extension. With the knee in extension, the tibial trial spacer block was used to bev the rotational alignment and anterior extent of the femoral component. The spacer block was removed and the tibia was sized with the depth gauge. The distal femoral cutting block was inserted taking care to orient it appropriately. A 1 mm yovana was added on the femoral side to under resect the distal femur and balance the extension and flexion gaps. The cut was done using the saw through the guide. The guide was removed, and the femur was sized with the femoral sizing blocks. The appropriate sized cutting jig was selected. Care was taken to ensure the block was flush with the resected distal femur bone surface. A curved gouge was used to cut the profile of the proximal tip of the femoral prosthesis, bev the extent of the anterior chamfer cut, and prevent trochlear cartilage delamination. The posterior cut was done through the jig, the anterior cut was done using the osteotomes, the posterior chamfer cut was done to the jig, and the drill was used to drill the 2 peg holes. The cutting block and bone cuts were removed. The medial meniscus remnant was removed. The femoral component trial was placed in the distal femur and the 7 mm spacer block confirmed appropriate balancing in flexion, extension, and again 2 mm of medial joint space opening in 30 degrees of flexion. Tibial template was inserted and the size confirmed to be appropriate. The keel was used by hand to remove bone from the slot and the tibial peg drill was used in the peg hole. The tourniquet was inflated for cementation and up for 35 minutes. The pulse lavage was used to clean the bone surfaces. SmartSet medium viscosity cement was prepared. At the appropriate time during the early working phase, the cement was applied to the backside of the tibial and femoral components. Then, cement was carefully placed and pressurized into the proximal tibia taking care to only have minimal cement posteriorly. The tibial component was inserted at an angle and then impacted directing pressure from posterior to anterior to keep the flow of cement from posterior to anterior. Cement was then applied to the distal femur and the femoral component impacted. Excess cement was removed. The knee was brought into full extension and this position with axial load was maintained until the cement was completely hardened at 20 minutes. The tibial tray epic application coordinator was removed, and the final tibial insert was inserted and clicked into place. The knee was tested through range of motion found to be stable with equal balancing from full extension to flexion past 90 degrees and a couple millimeters of medial joint space opening in 20-30 degrees of flexion. The wound was copiously irrigated with the pulse lavage and then Irrisept. A combination 266 mg Exparel, 30 mg ketorolac, and 50 mL bupivicaine 0.25% pain injection was widely infiltrated about the knee. The posterior aspect of the joint had been injected prior to implant placement. Appropriate hemostasis was achieved. The capsule was approximated using #1 Vicryl in a figure-of-8 interrupted fashion and then closed using Stratafix #1 PDS barbed suture in a running fashion. The superficial layers were irrigated. Subcutaneous tissue was closed using 2-0 Monocryl in a buried interrupted fashion. Skin was closed using 3-0 Monocryl in a buried subcuticular fashion. The skin incision was glued and then covered with a Mepilex Ag dressing. An Sudhakar wrap was applied from the foot up to the thigh. The patient awoke from anesthesia without complication was transferred to the recovery room in stable condition.
[2021-05-30] MEDS: Ketorolac 30 MG/ML VIAL (10:33)
[2021-05-30] MEDS: Bupivacaine 0.25% Pres-Free 30 ML VIAL (10:34)
[2021-05-30] MEDS: Normal Saline Flush 10 ML SYR IV (12:38)
--- NOTE | 2021-05-30 12:59 | IN_ITS ---
Date of service: 05/30/21 Time of Service: 12:59 PT Notes Visit Reasons: Right knee surgery Physical Therapy Day Surgery Initial Evaluation Date: 05/30/2021 Referring Doctor: Awais Weiss MD PT Orders: PT CONSULT: Status post Ortho surgery. Precautions: WBAT on right R LE with AD. Patient Profile/Admitting Diagnosis: Arianne is a 81-year-old female with primary unilateral osteoarthritis of the right knee and is status post R knee medial unicompartmental arthroplasty on postoperative day 0. 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 Indoors there is another 1 step with a rail on 1 side. Independent with all aspects of mobility ADLs without an assistive device prior to surgery. Equipment Owned/DME: Bilateral axillary crutches Subjective: Patient is agreeable to PT consult. Reported mild lightheadedness at the start of ambulation activity that did not limit activity completion. Objective: General Observation: PRADEEP wraps to right LE. Supine in bed. IV access in right UE. Mental Status: Alert and oriented x4 Pain: 4/10 in R knee with weight bearing. ROM: Right Upper Extremity: Shoulder Flexion WFL. Shoulder abduction WFL. Elbow flexion WFL. Wrist flexion WFL. Functional opening and closing of hand WFL. Left Upper Extremity: Shoulder Flexion WFL. Shoulder abduction WFL. Elbow flexion WFL. Wrist flexion WFL. Functional opening and closing of hand WFL. Right Lower Extremity: Hip flexion WFL. Hip abduction WFL. Knee flexion 20 to 95 degrees. Knee extension -20 degrees. Ankle dorsiflexion WFL. Ankle plan tarflexion WFL. Left Lower Extremity: Hip flexion WFL. Hip abduction WFL. Knee flexion WFL. Ankle dorsiflexion WFL. Ankle plantarflexion WFL. Strength: Right Upper Extremity: Shoulder flexors 4/5. Shoulder abductors 4/5. Elbow flexors 5/5. Elbow extensors 5/5. Legal Nurse Consultant strong. Left Upper Extremity: Shoulder flexors 4/5. Shoulder abductors 4/5. Elbow flexors 5/5. Elbow extensors 5/5. Legal Nurse Consultant strong. Right Lower Extremity: Hip flexors 4/5. Hip abductors 4/5. Knee flexors 3-/5. Knee extensors 3-/5. Ankle dorsiflexors 5/5. Ankle plantarflexors 5/5. Left Lower Extremity:Hip flexors 5/5. Hip abductors 5/5. Knee flexors 5/5. Knee extensors 5/5. Ankle dorsiflexors 5/5. Ankle plantarflexors 5/5. Sensation: Intact as to pain and light pressure in bilateral lower extremities Bed Mobility/Transfers: Supine to sit supervision Sit to stand contact-guard assist Stand to sit standby assist Bed to chair contact-guard assist Gait: Guided patient through level surface ambulation of 80 feet using bilateral axillary crutches minimal verbal cueing for correct gait pattern and device management. Reports mild lightheaded that did not limit activity completion. Three-point gait pattern, swing through. Reported pain at 4/10 in the right knee. No LOB. No SOB. Stairs: Tolerated up-and-down six 4 inch steps and four 6 inch steps while holding onto a crutch on 1 side and a rail on the other for support requiring contact-guard assist with no increase in pain reported. Balance: Static Sitting: Normal normal Dynamic Sitting: Static Standing: Fair Dynamic Standing: Fair Special Tests: Mobility Limitations Standardized Measure [facility] AM-PAC 6 clicks Basic Mobility Inpatient Short Form: Raw Score: 21 CMS Score: 29% deficit Informed Consent/Education: Patient instructed in purpose of PT consult. Packet containing partial TKA exercise protocol has been given to patient. Education and training on initial set of exercises that can be done at home have been completed with patient. Assessment: Arianne requires the use of bilateral axillary crutches to maximize independence and increase activity tolerance for all transfer and ambulation task performance. She will have the assistance of her significant other as she recovers at home. Pain level and dizziness did not limit mobility ADL completion as above. Patient presents with clinical signs and symptoms consistent with current/admitting diagnoses that have resulted to mobility limitations, gait instability, generalized weakness, and impairment of motor control as demonstrated by the following impairment level findings: 1. Decreased strength to right knee major muscle groups 2. Impaired standing balance 3. Limitation of joint range of motion in the right knee Impairments are contributing to the following functional limitations: 1. Inability to safely ambulate without assistive device 2. Increase completion time for mobility ADL performance 3. Increased fall risk Patient is assessed as a 08795 moderate complexity based on the following: History: 81-year-old female with impairment level findings, functional limitations, and past medical history as indicated above Examination: Demonstrable impairment in strength, balance, and mobility level with underlying impairments and functional limitations as documented above Presentation: Evolving Decision Makin moderate complexity Goals: N/A. PT evaluation and 1-2 treatment sessions only for functional mobility training using recommended AD and for HEP instruction. Plan of Care/Treatment Plan: N/A. PT evaluation and 1-2 treatment session only for functional mobility training using recommended AD and for HEP instruction. DISCHARGE RECOMMENDATIONS: Home when medically cleared by orthopedic surgeon. Has bilateral axillary crutches that have been fitted by PT during this consult. TREATMENT CODE/TIME: 9716 2 x 20 minutes, 9753 0 x 11 minutes beginning at 12:59 PM. Thank you for the opportunity to participate in the care of this patient. Radha David PT, DPT, CLT [facility] [place], [place]
--- NOTE | 2021-05-30 13:46 | NUR.NOTE ---
Nursing Note: Dr. Weiss came and visited with the patient, given verbal instructions and will now do the discharge instructions. Still waiting for patient to void. Once she does she is able to go home.
--- NOTE | 2021-05-30 13:57 | PDOC.DSDIS_ITS ---
Discharge Plan Disposition Patient Disposition: HOME Condition: Stable Discharge Details Reason For Visit: Right knee surgery Attending Provider: Awais Weiss Primary Care Provider: Mandy Orta Home Meds and New Rx's Prescriptions: New aspirin 81 mg tablet,delayed release (DR/EC) 81 mg PO BID 30 Days Qty: 60 RF: 0 naproxen 250 mg tablet 250 - 500 mg PO BID PRN (Reason: Moderate pain or swelling) Qty: 60 RF: 0 tramadol 50 mg Tablet 50 mg PO Q8H PRN PRN (Reason: severe pain) Qty: 12 RF: 0 Continued cranberry extract 200 MG capsule 200 mg PO BID RF: 0 calcium-vitamin D3-vitamin K 1 EACH tablet,chewable 1 tab PO BID RF: 0 biotin 1 MG tablet 5,000 mcg PO DAILY RF: 0 methimazole 5 MG tablet 0.5 tab PO .QAM RF: 0 docusate sodium 100 MG tablet 100 mg PO DAILY RF: 0 Discontinued ibuprofen [Advil] 200 MG tablet 1 - 2 tab PO PRN PRNRF: 0 Discharge Instructions Additional Instructions: Surgery: Right medial unicondylar knee replacement Activity: Weightbearing as tolerated. Recommend elevation to minimize swelling and discomfort. Walk as comfort allows. May use crutches as needed. Important to restore full knee extension as soon as possible. May gently progress knee flexion over the next few weeks. Do not rest with pillows behind knee to prevent knee from getting stuck bent. Physical therapy prescription will be sent electronically to start in about 1-2 weeks. Prescriptions: Aspirin 81 mg take 1 twice a day to prevent a blood clot 30 days Naproxen 250 mg take 1-2 every 12 hours with a meal as needed for moderate pain. Do not use at the same time as ibuprofen (Motrin). Tramadol 50 mg take 1 every 8 hours as needed for severe pain You may use [id number] Tylenol (acetaminophen) as needed for mild pain. These pain medications may be taken all at once or in different combinations as needed. Also, recommend Colace (docusate) as a stool softener as surgery and pain medicine cause constipation. Dressings: Leave Band-Aid in place until follow-up. Keep clean and dry at all times. May remove Sudhakar wrap tomorrow. May re-wrap with Sudhakar wrap to help control swelling as needed. Follow-up: 10-[address] Weiss (11:15 AM on 06/12/21). You may take off the leg compression wrap & stockings tomorrow at home. You may also leave them on a few days longer if you have a history of leg swelling or edema. Let us know right away if you develop any redness, drainage, fevers, chest pain, or trouble breathing. Do not drink alcohol or drive for at least 24 hours after anesthesia. Please call the office during business hours with any questions or concerns. Referrals: Awais Weiss MD [ [facility] STAFF PHYSICIAN] - Discharge Orders Discharge Orders: Discharge Order (Routine); Ordered 05/30/21 Ordered By: Awais Weiss DS: Diagnosis Discharge Diagnosis (1) Primary osteoarthritis of right knee: Status: Chronic
== END 2021-05-30 14:51 | disposition home or self-care (01) ==
PROVIDERS: PCP Family Medicine; Visit Provider Student in an Organized Health Care Education/Training Program
PROC: (CPT 27446; principal; 2021-05-30 07:30)
DX: M17.11 Unilateral primary osteoarthritis, right knee (principal); I10 Essential (primary) hypertension; I48.91 Unspecified atrial fibrillation
CPT/HCPCS: 27446; C1776; 76942; 97162; 97530; 73560; J0690; J1100; J1885; J2001; J2405

== ENCOUNTER 2021-06-03 01:47 | Emergency (ER) | payer MEDICARE, SELFPAY ==
[2021-06-03 01:47] VITALS: BP 128/51; PULSE 61; RESP 16; TEMP 36; O2SAT 100
--- NOTE | 2021-06-03 01:53 | ED.GENADUL_ITS ---
Discharge Plan Disposition Patient Disposition: HOME Condition: Improving Discharge Details Clinical Impression: Constipation Primary Care Provider: Mandy Orta ED Provider: Jesus Rothman Home Meds and New Rx's Prescriptions: Continued cranberry extract 200 MG capsule 200 mg PO BID RF: 0 calcium-vitamin D3-vitamin K 1 EACH tablet,chewable 1 tab PO BID RF: 0 biotin 1 MG tablet 5,000 mcg PO DAILY RF: 0 naproxen 250 mg tablet 250 - 500 mg PO BID PRN (Reason: Moderate pain or swelling) Qty: 60 RF: 0 tramadol 50 mg Tablet 50 mg PO Q8H PRN PRN (Reason: severe pain) Qty: 12 RF: 0 methimazole 5 MG tablet 0.5 tab PO .QAM RF: 0 docusate sodium 100 MG tablet 100 mg PO DAILY RF: 0 aspirin 81 mg tablet,delayed release (DR/EC) 81 mg PO DAILY RF: 0 Discharge Instructions Instructions: Constipation (ED) Additional Instructions: Small, frequent sips of fluids to maintain hydration. [place] amounts of fruits and vegetables for increased fiber in the diet. May use the provided Fleet enema x1 at home if needed. May continue Colace once daily. Return for any acute concerns. Medical Decision Making 81-year-old female states she has had no bowel movement for 6 days. She underwent successful right total knee arthroplasty on May 30. She is taking tramadol for postoperative pain. She has a history of constipation in the past. Tonight she had crampy abdominal pain and nausea at home. No emesis and no fever. She was brought by EMS and the pain is improved at time of arrival. No stool ball impaction. Patient given soapsuds enema with production of some hard stool balls and subjective improvement. We will offer her Fleet enema for home if needed. She is stable and improved at this time. HPI General Mode of arrival: ambulatory . Date/Time Provider Initiated Documentation: 06/03/21 02:25 . Limitations to Documentation: no limitations . Information obtained by: patient . History of Present Illness 81 year old F presents to the emergency department with the chief complaint of Crampy abdominal pain, no bowel movement, described as moderate, and is localized to the abdomen. Patient reports no radiation. Patient started experiencing this hour(s) and it has been now resolved. No relieving factors improve symptom(s), No exacerbating factors reported . Patient notes denies fever/chills and nausea/vomiting. Patient did receive the following treatment s prior to arrival, other (Has been trying laxatives) Related Data Home Medications Medication Instructions Recorded Confirmed calcium-vitamin D3-vitamin K 1 tab PO BID 02/25/13 06/03/21 biotin 5,000 mcg PO DAILY 12/23/13 06/03/21 cranberry extract 200 mg PO BID 05/02/16 06/03/21 docusate sodium 100 mg PO DAILY 04/16/18 06/03/21 methimazole 0.5 tab PO .QAM 04/16/18 06/03/21 naproxen 250 - 500 mg PO BID PRN #60 tab 05/30/21 06/03/21 tramadol 50 mg PO Q8H PRN PRN #12 tab 05/30/21 06/03/21 aspirin 81 mg PO DAILY 06/03/21 06/03/21 Previous Rx's Medication Instructions Recorded naproxen 250 - 500 mg PO BID PRN #60 tab 05/30/21 tramadol 50 mg PO Q8H PRN PRN #12 tab 05/30/21 Allergies Allergy/AdvReac Type Severity Reaction Status Date / Time No Known Drug Allergies Allergy Unknown unknown Unverified 06/03/21 01:56 General UMAIR: 3 Review of Systems Narrative: No vomiting, no fever, has been able to mobilize and walk at home. Taking tramadol. History of constipation. 6 systems reviewed and otherwise negative [facility] Medical History A-fib pt. states she does not have a-fib, stated they discovered it was related to her Graves Disease Anatomical narrow angle of right eye Breast lump (09/24/97) Cortical cataract of left eye Cortical cataract of right eye Depression Dysfunctional uterine bleeding (09/24/97) Glaucoma Graves disease Hiatal hernia Hx of fracture of nose pt. stated when she was young she fractured her nose and doesn't breathe well out of left nostril but if she places breathe right strip on her nose she can. 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 Grandfather No problems noted. Grandfather No problems noted. Grandmother Diabetes Personal history of malignant neoplasm UTERINE Grandmother No problems noted. Social History Smoking/Tobacco Use Status: Never Smoking risk assessment performed?: Yes Alcohol Intake: never Drug use: Never Substance use type: does not use Current gender identity: female Do you feel safe at home: Yes Do you feel safe in your relationship?: Yes History History 0 Para Hx # Term Pregnancies Multiple births Hx # Pregnancies Ectopic pregnancies AB induced Hx Number of Living Children AB spontaneous Exam Narrative Exam Narrative: GEN: awake, alert, oriented 3. Pleasant, well groomed, interactive. HEAD: Normocephalic, atraumatic ENT: Mucous membranes moist, oropharynx unremarkable, External ear exam unremarkable EYES: PERRL, EOMI NECK: Full ROM, no SIRENA, no menigismus CHEST/RESP: Nontender, clear to auscultation bilateral, no wheeze/rhonchi/rales CARDIOVASCULAR: RRR, no murmur, rub marisela. 2+ Rad pulse bilateral ABDOMEN: Soft, nontender, no mass. +Bowel sounds. Palpable stool in rectal vault, no impaction or obstruction. Normal rectal tone. EXT: Full ROM, right knee with dressed surgical vertical oriented incision. No warmth or erythema. Neuro: Grossly normal neurologic exam, conversant, interactive. Psych: Speech fluent, thoughts congruent, affect normal
== END 2021-06-03 02:40 | disposition home or self-care (01) ==
LOC: ER 02:51
PROVIDERS: Emergency Provider Emergency Medicine; PCP Family Medicine
DX: K59.09 Other constipation (principal); R11.0 Nausea
CPT/HCPCS: 99283

== ENCOUNTER → 2021-06-05 10:20 | Outpatient (BNVA) | payer MEDICARE, SELFPAY | PROVIDERS: PCP Family Medicine; Referring Provider Family Medicine | DX: R69 Illness, unspecified (principal) ==

== ENCOUNTER 2021-06-12 14:36 | Outpatient (CLI) | payer MEDICARE, SELFPAY ==
--- NOTE | 2021-06-12 11:15 | DI.RAD_ITS ---
Exam(s) XR KNEE RT 2V AP,LAT EXAM: XR KNEE RT 2V AP,LAT CLINICAL HISTORY: 1ST POST OP R PARTIAL KNEE REPLACEMENT. TECHNIQUE: 2D digital imaging was performed. COMPARISON: CR XR KNEE RT 2V AP,LAT from 05/30/2021 FINDINGS: There is stable position alignment of the components of the recently placed medial hemiarthroplasty. No fracture or loosening evident. No radiographic evidence of osteomyelitis. IMPRESSION: DATA REPOSITORY: RADIATION DOSE DELIVERED:
== END 2021-06-12 14:37 | disposition home or self-care (01) ==
LOC: DIORS 14:37
PROVIDERS: PCP Family Medicine; Referring Provider Family Medicine; Visit Provider Student in an Organized Health Care Education/Training Program
DX: Z47.1 Aftercare following joint replacement surgery; Z96.651 Presence of right artificial knee joint
CPT/HCPCS: 73560

== ENCOUNTER 2021-08-07 12:01 | Outpatient (CLI) | payer MEDICARE, SELFPAY ==
--- NOTE | 2021-08-07 10:55 | DI.RAD_ITS ---
Exam(s) XR KNEE RT 2V AP,LAT EXAM: XR KNEE RT 2V AP,LAT CLINICAL HISTORY: PARTIAL KNEE REPLACEMENT F/U. TECHNIQUE: 2D digital imaging was performed. COMPARISON: CR XR KNEE RT 2V AP,LAT from 06/12/2021 FINDINGS: There is stable position alignment of the components of the right knee medial hemiarthroplasty. No f racture or loosening. No significant narrowing of the lateral compartment. IMPRESSION: DATA REPOSITORY: RADIATION DOSE DELIVERED:
== END 2021-08-07 12:02 | disposition home or self-care (01) ==
LOC: DIORS 12:01
PROVIDERS: PCP Family Medicine; Referring Provider Family Medicine; Visit Provider Student in an Organized Health Care Education/Training Program
DX: Z47.1 Aftercare following joint replacement surgery (principal); Z96.651 Presence of right artificial knee joint
CPT/HCPCS: 73560

== ENCOUNTER 2021-09-27 15:24 | Outpatient (REF) | payer MEDICARE, SELFPAY ==
[2021-09-27 21:12] LABS: HCT 39.2 % (36.0-46.0); HGB 12.7 g/dL (11.2-15.7); MCH 30.2 pg (27.0-33.0); MCHC 32.4 % (32.0-36.0); MCV 93.3 fL (80-95); MPV 11.5 fL (8.0-11.0); Platelet Count 246 10^3/uL (130-400); RDW 13.1 % (11.7-14.6); RDW-SD 44.9 fL; WBC 5.25 10^3/uL (4.4-10.8)
[2021-09-27 21:50] LABS: TSH (W/Ref FT4) 1.02 uIU/mL (0.36-3.74)
[2021-09-27 22:00] LABS: T4 5.8 ug/mL (4.7-13.3)
[2021-09-28 22:47] LABS: T3,Free 3.6 pg/mL (2.8-5.3)
== END 2021-09-27 15:25 | disposition home or self-care (01) ==
LOC: NCHCN 15:24
PROVIDERS: PCP Family Medicine; Visit Provider Family Medicine
DX: E05.00 Thyrotoxicosis with diffuse goiter without thyrotoxic crisis or storm (principal)
CPT/HCPCS: 85027; 84436; 84439; 84443; 84481

== ENCOUNTER 2021-10-29 01:08 | Outpatient (CLI) | payer MEDICARE, SELFPAY ==
--- NOTE | 2021-10-29 | DI.US_ITS ---
Exam(s) US THYROID EXAM: US THYROID CLINICAL HISTORY: GRAVES DISEASE E05.00. TECHNIQUE: Ultrasound thyroid performed using standard protocol. COMPARISON: No exams were available for comparison FINDINGS: ISTHMUS: 6 mm RIGHT LOBE: Size: 5.7 x 2.7 x 2.0 cm Echogenicity: Normal. Vascularity: Normal. Nodules: There are multiple spongiform nodule seen within the right lobe of the thyroid gland. These are considered benign nodules. No follow-up is recommended. LEFT LOBE: Size: 4.7 x 2.6 x 2.3 cm Echogenicity: Normal. Vascularity: Normal. Nodules: There are multiple spongiform nodule seen in the left lobe of the thyroid gland. These are considered benign nodules. No follow-up is recommended. There is a 1.7 x 1.5 x 1.2 cm solid nodule in the midpole of the left thyroid gland. It is hypoechoic with smooth margins. Punctate echogenic foci are seen internally. This is consistent with a TIRADS level 5 nodule. OTHER FINDINGS: None. IMPRESSION: 1. Multinodular thyroid gland. 2. 1.7 x 1.5 x 1.2 cm TIRADS level 5 nodule in the midpole of the left thyroid gland. DATA REPOSITORY:
== END 2021-10-29 01:28 ==
PROVIDERS: PCP Family Medicine; Visit Provider Family Medicine
DX: E05.00 Thyrotoxicosis with diffuse goiter without thyrotoxic crisis or storm (principal); E07.89 Other specified disorders of thyroid
CPT/HCPCS: 76536

== ENCOUNTER 2022-01-21 02:51 | Outpatient (CLI) | payer MEDICARE, SELFPAY ==
[2022-01-21 14:59] LABS: AST 17 U/L (15-37); FREE T4 0.67 ng/dL (0.76-1.46); TSH 1.12 uIU/mL (0.36-3.74)
== END 2022-01-21 02:52 | disposition home or self-care (01) ==
LOC: LBO 02:52
PROVIDERS: PCP Family Medicine; Visit Provider Internal Medicine Endocrinology, Diabetes & Metabolism
DX: E05.90 Thyrotoxicosis, unspecified without thyrotoxic crisis or storm (principal)
CPT/HCPCS: 36415; 84439; 84443; 84450

== ENCOUNTER 2022-04-03 08:21 | Outpatient (REF) | payer MEDICARE, SELFPAY ==
[2022-04-03 16:05] LABS: ALT 12 U/L (14-59); AST 11 U/L (15-37); Albumin 4.2 g/dL (3.4-5.0); Alkaline Phosphatase 95 U/L (46-116); Anion Gap 8.1 mmol/L (3-11); BUN 25 mg/dL (7-18); Bilirubin, Total 0.3 mg/dL (0.2-1.0); CO2 29.9 mmol/L (21.0-32.0); CREATININE 0.9 mg/dL (0.55-1.02); Calcium 9.1 mg/dL (8.5-10.1); Calculated LDL 160 mg/dL (<100); Chloride 102 mmol/L (98-107); Cholesterol 256 mg/dL (<200); Glucose 111 mg/dL (74-106); HDL Cholesterol 69 mg/dL (40-60); Potassium 4.9 mmol/L (3.5-5.1); Sodium 140 mmol/L (136-145); Total Protein 7.2 g/dL (6.4-8.2); Triglyceride 138 mg/dL (<150)
[2022-04-03 16:23] LABS: Vitamin D 25 Total 57.4 ng/mL (30-100)
== END 2022-04-03 08:22 | disposition home or self-care (01) ==
LOC: NCHCN 08:21
PROVIDERS: PCP Family Medicine; Visit Provider Family Medicine
DX: Z00.00 Encounter for general adult medical examination without abnormal findings (principal); M85.80 Other specified disorders of bone density and structure, unspecified site
CPT/HCPCS: 80053; 80061; 82306

== ENCOUNTER → 2022-04-15 00:22 | Outpatient (CLI) | payer MEDICARE, SELFPAY ==
--- NOTE | 2022-04-15 11:33 | DI.MAMMO_ITS ---
Exam(s) MAMMO SCREENING EXAM: MAMMO SCREENING CLINICAL HISTORY: SCREENING, Z12.31 TECHNIQUE: Mammograms were interpreted according to the usual protocol including computer analysis w Node1 CAD system, tomosynthesis and C-view imaging. COMPARISON: 2012 through 2018. FINDINGS: The breasts are composed of scattered fibroglandular densities, Breast Density category B. No suspicious masses or suspicious microcalcifications are seen. No skin thickening or abnormal axillary lymph nodes are seen. There has been no significant change from prior exams. IMPRESSION: BI-RADS Category 1, Negative mammogram Yearly screening mammography is recommended. Breast Density - Category B, scattered fibroglandular densities. A negative radiographic report should not delay biopsy if a dominant or clinically suspicious mass is present. Up to ten percent of cancers are not identified on mammography. A negative report may reinforce clinical impression. Adenosis and dense breasts may obscure an underlying neoplasm. False positive reports average 6 to 10%. Patient will receive a letter notifying them of these results.
== END ==
PROVIDERS: PCP Family Medicine; Visit Provider Family Medicine
DX: Z12.31 Encounter for screening mammogram for malignant neoplasm of breast (principal)
CPT/HCPCS: 77063; 77067

== ENCOUNTER 2022-06-10 10:21 | Outpatient (CLI) | payer MEDICARE, SELFPAY ==
--- NOTE | 2022-06-10 10:01 | DI.RAD_ITS ---
Exam(s) XR KNEE RT 2V AP,LAT EXAM: XR KNEE RT 2V AP,LAT CLINICAL HISTORY: right knee f/u. TECHNIQUE: 2D digital imaging was performed. COMPARISON: CR XR KNEE RT 2V AP,LAT from 08/07/2021 FINDINGS: Two views There is continued stable alignment of the appearance and alignment of the components of the medial h emiarthroplasty. No obvious fractures or loosening evident. The lateral compartment continues to ex hibit normal height. No new osteophytes. IMPRESSION: DATA REPOSITORY: RADIATION DOSE DELIVERED:
== END 2022-06-10 10:22 | disposition home or self-care (01) ==
LOC: DIORS 10:22
PROVIDERS: PCP Family Medicine; Referring Provider Family Medicine; Visit Provider Student in an Organized Health Care Education/Training Program
DX: Z96.651 Presence of right artificial knee joint (principal)
CPT/HCPCS: 99213; 73560

== ENCOUNTER 2022-10-07 13:54 | Outpatient (REF) | payer MEDICARE, SELFPAY ==
[2022-10-07 15:26] LABS: Calculated LDL 166 mg/dL (<100); Cholesterol 260 mg/dL (<200); HDL Cholesterol 64 mg/dL (40-60); TSH (W/Ref FT4) 0.07 uIU/mL (0.36-3.74); Triglyceride 152 mg/dL (<150)
[2022-10-07 15:55] LABS: FREE T4 1.06 ng/dL (0.76-1.46)
== END 2022-10-07 13:55 | disposition home or self-care (01) ==
LOC: NCHCN 13:54
PROVIDERS: PCP Family Medicine; Visit Provider Family Medicine
DX: E78.5 Hyperlipidemia, unspecified (principal); E05.00 Thyrotoxicosis with diffuse goiter without thyrotoxic crisis or storm
CPT/HCPCS: 80061; 84439; 84443

== ENCOUNTER 2022-11-14 08:57 | Emergency (ER) | payer MEDICARE, SELFPAY ==
[2022-11-14 09:00] VITALS: BP 148/69; PULSE 74; RESP 18; TEMP 37.1; O2SAT 100
--- NOTE | 2022-11-14 09:00 | DI.RAD_ITS ---
Exam(s) XR WRIST RT COMPLETE EXAM: XR WRIST RT COMPLETE CLINICAL HISTORY: Fall. TECHNIQUE: 2D digital imaging was performed of the right wrist. Three views were obtained. PA, lat eral and oblique views were obtained. COMPARISON: No exams were available for comparison FINDINGS: BONES: There is an acute comminuted fracture of the distal metaphysis of the right radius. There is mild posterior displacement of the distal fracture. No bony destructive lesion is seen. JOINTS: The carpal bones are normally aligned. SOFT TISSUE: Normal. IMPRESSION: Acute mildly displaced distal radial fracture. DATA REPOSITORY: RADIATION DOSE DELIVERED:
--- NOTE | 2022-11-14 09:13 | ED.GENADUL_ITS ---
Discharge Plan Discharge Details Chief Complaint: Orthopedic Primary Care Provider: Mandy Orta ED Provider: Mciky Dela Cruz Home Meds and New Rx's Prescriptions: No Action cranberry extract 200 MG capsule 200 mg PO BID calcium-vitamin D3-vitamin K 1 EACH tablet,chewable 1 tab PO BID biotin 1 MG tablet 5,000 mcg PO DAILY methimazole 5 MG tablet 0.5 tab PO .QAM docusate sodium 100 MG tablet 100 mg PO DAILY acetaminophen [Acetaminophen Extra Strength] 500 mg Tablet 1,000 mg PO Q8H PRN Medical Decision Making 82-year-old lady who sustained a isolated fracture, nondisplaced, of the right distal radius. She was placed in a sugar-tong splint which was well-tolerated. She will be asked to follow-up with orthopedics. HPI General Date/Time Provider Initiated Documentation: 11/14/22 09:11 . HPI Narrative: 82-year-old male sustained trauma to the right wrist when she fell on her hand. Her hand was underneath her abdomen when she hit the ground. She slipped on the ice. She denies any head trauma. Denies any neck pain. She denies any chest wall pain, denies any shortness of breath, denies any abdominal discomfort. Isolated injury to the right wrist. Pain is worse with movement. Better with ice and Tylenol. There is according to the patient some mild swelling of the wrist. Related Data Home Medications Medication Instructions Recorded Confirmed calcium-vitamin D3-vitamin K 500 1 tab PO BID 02/25/13 11/14/22 mg-1,000 unit-40 mcg chewable tablet biotin 1 mg tablet 5,000 mcg PO DAILY 12/23/13 11/14/22 cranberry extract 200 mg capsule 200 mg PO BID 05/02/16 11/14/22 docusate sodium 100 mg tablet 100 mg PO DAILY 04/16/18 11/14/22 methimazole 5 mg tablet 0.5 tab PO .QAM 04/16/18 11/14/22 acetaminophen 500 mg tablet 1,000 mg PO Q8H PRN 11/14/22 11/14/22 (Acetaminophen Extra Strength) Allergies Allergy/AdvReac Type Severity Reaction Status Date / Time No Known Drug Allergies Allergy Unknown unknown Unverified 11/14/22 09:05 General Stated Complaint: Orthopedic UMAIR: 4 Review of Systems Narrative: Constitutional negative for fever and chills. HEENT negative no trauma, cardiovascular no palpitations no chest pain, respiratory no shortness of breath, GI no abdominal pain, no nausea no vomiting, MSK see HPI, skin no rashes, neuro no weakness no paresthesias, psych no anxiety, hematological not on blood thinners. PFSH All Active Problems (Updated 06/12/21 @ 11:24 by Camille Salinas RN) History of partial knee replacement (Acute) Constipation (Acute) Increased endometrial stripe thickness (Acute 02/02/14) bx 02/06-endometrial polyp Psoriatic arthropathy (Acute) Polyp of colon (Acute) 12/06 right hemicolectomy to remove tubular adenoma. Ocular migraine (Acute) 03/10/15; [facility]; RECOMMEND CAROID ARTERY U/S Hyperthyroidism (Acute 02/22/14) Hiatal hernia (Acute) Glaucoma (Acute) narrow angle; laser [place] Essential hypertension (Acute 11/08/13) Duodenitis (Acute 12/23/13) S/P EGD; PEPTIC DUODENITIS; DR. Mary NÚÑEZ Diverticulosis of colon without diverticulitis (Acute) Chronic bilateral low back pain without sciatica (Acute 03/04/16) Carpal tunnel syndrome (Acute) bilateral Primary osteoarthritis of right knee (Chronic) Recent Depo-Medrol injections: 08/20/2020; 08/23/2019 Previously had received [address] Forde UTI (urinary tract infection) (Acute) Heart palpitations (Acute) Atrial fibrillation (Acute 09/24/01) Status post cataract extraction and insertion of intraocular lens of left eye (Chronic 10/22/18) Status post cataract extraction and insertion of intraocular lens of right eye (Chronic 10/11/18) Medical History (Updated 06/03/21 @ 02:30 by Jesus Rothman MD) A-fib pt. states she does not have a-fib, stated they discovered it was related to her Graves Disease Anatomical narrow angle of right eye Breast lump (09/24/97) Cortical cataract of left eye Cortical cataract of right eye Depression Dysfunctional uterine bleeding (09/24/97) Glaucoma Graves disease Hiatal hernia Hx of fracture of nose pt. stated when she was young she fractured her nose and doesn't breathe well out of left nostril but if she places breathe right strip on her nose she can. 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 Grandfather No problems noted. Grandfather No problems noted. Grandmother Diabetes Personal history of malignant neoplasm UTERINE Grandmother No problems noted. Social History Smoking/Tobacco Use Status: Never Smoking risk assessment performed?: Yes Alcohol Intake: never Drug use: Never Substance use type: does not use Current gender identity: female Do you feel safe at home: Yes Do you feel safe in your relationship?: Yes History History 0 Para Hx # Term Pregnancies Multiple births Hx # Pregnancies Ectopic pregnancies AB induced Hx Number of Living Children AB spontaneous Exam Narrative Exam Narrative: Awake alert oriented x3 calm no acute distress pleasant and cooperative Normocephalic atraumatic PERRLA EOMI MMM anicteric Neck is supple no midline tenderness Chest normal work of breathing Cardiovascular regular rhythm and rate normal pulses Extremities. Slight deformity of the left wrist. Positive tenderness. Normal pulses. Digital exam within normal limits. Elbow is within normal limits. Shoulder normal Neuro grossly intact Skin no rashes Course Vital Signs Vital signs: Vital Signs Temperature 37.1 C 11/14/22 09:00 Pulse 74 11/14/22 09:00 Respiratory Rate 18 11/14/22 09:00 Blood Pressure 148/69 H 11/14/22 09:00 Pulse Oximetry 100 11/14/22 09:00 Temperature 37.1 C 11/14/22 09:00 Temperature Source Temporal Artery Scan 11/14/22 09:00 Pulse 74 11/14/22 09:00 Respiratory Rate 18 11/14/22 09:00 Respiratory Effort Non-Labored 11/14/22 09:03 Blood Pressure 148/69 H 11/14/22 09:00 Blood Pressure Position Sitting 11/14/22 09:00 Pulse Oximetry 100 11/14/22 09:00 Oxygen Delivery Method Room Air 11/14/22 09:00 Oxygen Flow Rate 0 11/14/22 09:00 Pain Level 8 11/14/22 09:04 Procedures Orthopedic Splinting/Casting Injury #1: Side: right Upper Extremity Injury Location: wrist Additional Comments: The patient was placed in a right sugar-tong splint. Well-tolerated. Neurovascular intact following the procedure.
--- NOTE | 2022-11-14 09:32 | NUR.NOTE ---
Nursing Note: Pt return from DI after ordered exam, ice to affected right wrist, pt reports pain decreased to 6/10 w/ice on wrist, cont. to monitor.
--- NOTE | 2022-11-14 09:44 | NUR.NOTE ---
Nursing Note: Provider in to splint patient right forearm, pt w/o new complaints.
== END 2022-11-14 10:15 | disposition home or self-care (01) ==
PROVIDERS: Emergency Provider Emergency Medicine; PCP Family Medicine
DX: S52.501A Unspecified fracture of the lower end of right radius, initial encounter for closed fracture (principal); I48.91 Unspecified atrial fibrillation; W00.0XXA Fall on same level due to ice and snow, initial encounter; W22.8XXA Striking against or struck by other objects, initial encounter
CPT/HCPCS: 29125; 99283; 73110; 99284

== ENCOUNTER 2022-11-25 09:07 | Outpatient (CLI) | payer MEDICARE, SELFPAY ==
--- NOTE | 2022-11-25 08:45 | DI.RAD_ITS ---
Exam(s) XR WRIST RT LIMITED EXAM: XR WRIST RT LIMITED CLINICAL HISTORY: right wrist f/u. TECHNIQUE: 2D digital imaging was performed of the right wrist. Two views were obtained. PA and lat eral PA, lateral and oblique views were obtained. COMPARISON: CR XR WRIST RT COMPLETE from 11/14/2022 FINDINGS: BONES: There is again seen a distal radial fracture. When compared to the prior examination, there d oes appear to be mild dorsal tilt of the fracture at this time. No bony destructive lesion is seen. JOINTS: The carpal bones are normally aligned. SOFT TISSUE: Soft tissue swelling is present. IMPRESSION: Distal radial fracture is again seen with slight increased dorsal tilt on the current examination. DATA REPOSITORY: RADIATION DOSE DELIVERED:
== END 2022-11-25 09:08 | disposition home or self-care (01) ==
LOC: DIORS 09:07
PROVIDERS: PCP Family Medicine; Referring Provider Family Medicine; Visit Provider Student in an Organized Health Care Education/Training Program
DX: S52.501A Unspecified fracture of the lower end of right radius, initial encounter for closed fracture (principal); W22.8XXA Striking against or struck by other objects, initial encounter
CPT/HCPCS: 99214; 73100

== ENCOUNTER 2022-12-02 10:49 | Outpatient (CLI) | payer MEDICARE, SELFPAY ==
--- NOTE | 2022-12-02 09:30 | DI.RAD_ITS ---
Exam(s) XR WRIST RT LIMITED EXAM: XR WRIST RT LIMITED CLINICAL HISTORY: right wrist f/u. TECHNIQUE: 2D digital imaging was performed. COMPARISON: CR XR WRIST RT LIMITED from 11/25/2022 FINDINGS: Two views: Appearance of distal radius fracture is unchanged. Mildly impacted. Minimal dorsal angulation. No fracture of the ulnar styloid. No significant ulnar variance. Scaphoid and scapholunate distance no rmal. IMPRESSION: No radiographic change compared to 11/25/2022. DATA REPOSITORY: RADIATION DOSE DELIVERED:
== END 2022-12-02 10:50 | disposition home or self-care (01) ==
LOC: DIORS 10:50
PROVIDERS: PCP Family Medicine; Referring Provider Family Medicine; Visit Provider Student in an Organized Health Care Education/Training Program
DX: S52.501A Unspecified fracture of the lower end of right radius, initial encounter for closed fracture (principal); X58.XXXA Exposure to other specified factors, initial encounter
CPT/HCPCS: 99213; 73100

== ENCOUNTER 2023-01-06 09:57 | Outpatient (CLI) | payer MEDICARE, SELFPAY ==
--- NOTE | 2023-01-06 09:30 | DI.RAD_ITS ---
Exam(s) XR WRIST RT LIMITED EXAM: XR WRIST RT LIMITED INDICATION: DISTAL RADIUS FX F/U. COMPARISON: CR XR WRIST RT LIMITED from 12/02/2022 TECHNIQUE: 2D digital imaging was performed. Two views. FINDINGS: There has been no change in the alignment of the distal radial fracture. There is increased callus f ormation when compared the previous exam. No new abnormalities. DATA REPOSITORY: RADIATION DOSE DELIVERED:
== END 2023-01-06 09:58 | disposition home or self-care (01) ==
LOC: DIORS 09:57
PROVIDERS: PCP Family Medicine; Referring Provider Family Medicine; Visit Provider Student in an Organized Health Care Education/Training Program
DX: S52.501D Unspecified fracture of the lower end of right radius, subsequent encounter for closed fracture with routine healing (principal); X58.XXXD Exposure to other specified factors, subsequent encounter
CPT/HCPCS: 99213; 73100

== ENCOUNTER 2023-02-09 14:39 | Outpatient (CLI) | payer MEDICARE, SELFPAY ==
--- NOTE | 2023-02-09 | DI.US_ITS ---
Exam(s) US LOWER EXTREMITY VENOUS LT EXAM: US LOWER EXTREMITY VENOUS LT CLINICAL HISTORY: LT LEG PAIN, POPLITEAL VEIN THROMBOSIS TECHNIQUE: Grayscale, color, and doppler imaging of the deep venous system of the left lower extremi ty was performed. COMPARISON: No exams were available for comparison FINDINGS: There is no evidence of intraluminal thrombus and there is normal compression and augmentation demons trated within the common femoral vein, femoral vein, and popliteal vein. In the ipsilateral calf the interrogated veins also exhibit normal compression/ augmentation properti es. The ipsilateral saphenofemoral junction is patent. Incidentally noted is a popliteal Donis cyst measuring 1.8 x 1.6 x 0.9 cm. IMPRESSION: 1. No evidence of DVT in the left lower extremity. 2. Small Donis cyst in the popliteal fossa incidentally noted with measurements as above. DATA REPOSITORY:
== END 2023-02-09 14:59 ==
PROVIDERS: PCP Family Medicine; Visit Provider Internal Medicine
DX: M79.605 Pain in left leg (principal)
CPT/HCPCS: 93971

== ENCOUNTER 2023-02-12 02:47 | Outpatient (CLI) | payer MEDICARE, SELFPAY ==
--- NOTE | 2023-02-12 13:34 | DI.RAD_ITS ---
Exam(s) XR LUMBAR SPINE COMPLETE EXAM: XR LUMBAR SPINE COMPLETE CLINICAL HISTORY: LUMBAR BACK PAIN WITH RADICULOPATHY,M54.16. TECHNIQUE: 2D digital imaging was performed. Five views. COMPARISON: No exams were available for comparison FINDINGS: Exam is limited by overlying bowel gas. There is severe narrowing of the right side of the L1-2 disc space with prominent right-sided endplat e osteophytes. This causes mild scoliosis. The L2-3 and L3-4 disc spaces are not well profiled. Th ere are small endplate osteophytes at these levels. There are prominent facet joint degenerative alina nges at L3-4 through L5-S1. No spondylolysis or spondylolisthesis.. IMPRESSION: Degenerative disc changes and facet degenerative changes. Mild scoliosis. DATA REPOSITORY: RADIATION DOSE DELIVERED:
== END 2023-02-12 03:07 ==
PROVIDERS: PCP Family Medicine; Visit Provider Internal Medicine
DX: M54.16 Radiculopathy, lumbar region (principal)
CPT/HCPCS: 72110

== ENCOUNTER 2023-02-18 11:49 | Outpatient (CLI) | payer MEDICARE, SELFPAY ==
--- NOTE | 2023-02-18 11:30 | DI.RAD_ITS ---
Exam(s) XR KNEE LT 3V AP,LAT,KEYON EXAM: XR KNEE LT 3V AP,LAT,KEYON CLINICAL HISTORY: Left knee pain. TECHNIQUE: 2D digital imaging was performed. Three views. COMPARISON: CR XR KNEE RT 2V AP,LAT from 06/10/2022 FINDINGS: BONES: No acute fracture is present. No bony destructive lesion is seen. Small enthesophyte at its quadriceps insertion and patellar tendon insertion. JOINTS: Minimal narrowing medial femoral tibial joint space with minimal periarticular spurring. Mil d spurring is seen from the articular aspect of the patella the knee is normally aligned. No joint ef fusion is seen. SOFT TISSUE: Normal. IMPRESSION: Mild degenerative changes. DATA REPOSITORY: RADIATION DOSE DELIVERED:
== END 2023-02-18 11:50 | disposition home or self-care (01) ==
LOC: DIORS 11:49
PROVIDERS: PCP Family Medicine; Referring Provider Family Medicine; Visit Provider Student in an Organized Health Care Education/Training Program
DX: M25.862 Other specified joint disorders, left knee; S83.242A Other tear of medial meniscus, current injury, left knee, initial encounter; X58.XXXA Exposure to other specified factors, initial encounter
CPT/HCPCS: 20610; 73562; J1030

== ENCOUNTER 2023-04-08 02:41 | Outpatient (CLI) | payer MEDICARE, SELFPAY ==
--- NOTE | 2023-04-08 08:00 | DI.MRI_ITS ---
Exam(s) MR LOWER JOINT LT WO EXAM: MR LOWER JOINT LT WO CLINICAL HISTORY: INCREASING PAIN, DIFFICULTY WEIGHTBEARING,tear medial meniscus,h/o partial TECHNIQUE: Multiplanar multisequence MRI of the knee was performed. COMPARISON: MR MRI R LOWER JOINT WO CONT from 03/17/2018 CR XR KNEE LT 3V AP,LAT,KEYON from 02/18/2023 FINDINGS: EFFUSION: There is a moderate size knee joint effusion and there is a Donis cyst in the medial poplit eal fossa which measures approximately 4 cm length by 1.2 cm AP x 1 point 3 cm wide. It is partially ruptured as there is some fluid seen the high in the medial gastrocnemius. MARROW:There is some bone contusion signal in the medial tibial plateau and with some microtrabecular fracture lines parallel to the cortical surface in the medial tibial plateau, as best seen on the T1 images. No abnormal signal in the femoral condyles nor in the fibular head and neck. There are no significant osseous lesions. PATELLOFEMORAL COMPARTMENT: The quadriceps tendon is intact. The patellar ligament is intact. There is moderate uniform thinning of the retropatellar cartilage, approximately equal over both face ts. There is no deep fissure in the cartilage at this level. No osteochondral defects. No degenera tive cysts evident within the patella.There is no intraosseous signal to suggest recent patellar disl ocation. There are no patellar retinacular tears. CRUCIATE LIGAMENTS: The anterior cruciate ligament is intact.However, there is a benign bony excresce nce coming off the inner aspect of the lateral femoral condyle which appears to be impinging upon the proximal ACL at this level, this bony excrescence measuring approximately 5 x 5 mm. There is, howev er, no abnormal signal in the ACL at this level. The posterior cruciate ligament is intact MEDIAL COMPARTMENT/MEDIAL MENISCUS: There is an oblique/horizontal tear in the outer half of the post erior horn of the medial meniscus. The meniscal root appears intact. There is minimal extrusion. N o prominent meniscocapsular separation. The tear also appears to involve the body of the medial meni scus. There are no flipped meniscal fragments. The anterior horn appears relatively intact. There is moderate cartilage loss over the main weight-bearing surface of the medial condyle, without subarticular edema nor osteochondral defect. Bone edema and microtrabecular fracture line evident in the medial tibial plateau. No depression. MEDIAL COLLATERAL LIGAMENT: Mild increased signal. No significant tear LATERAL COMPARTMENT/LATERAL MENISCUS: There is some signal abnormality in the posterior horn of the l ateral meniscus which does not violate the articular surface. Also no obvious tear of the anterior h orn.There is, however, mild-moderate cartilage loss over the weight-bearing surface of the lateral fe moral condyle. No osteochondral defects nor subarticular marrow edema in the lateral femoral condyle nor in the lateral tibial plateau. ILIOTIBIAL BAND: Intact LATERAL COLLATERAL LIGAMENT COMPLEX: The fibular collateral ligament is intact. The biceps femoris t endon is intact.Popliteus muscle and tendon are intact. Mild increased signal noted within the popli teus tendon sheath. IMPRESSION: 1. Main findings here are in the medial compartment. There is tear of the medial meniscus, predomina tely in the posterior horn and there is subjacent intraosseous edema and microtrabecular fracture lavern es in the medial tibial plateau. There is no depressed tibial plateau fracture. There is some degen erative cartilage loss over the medial femoral condyle but no osteochondral defects nor subarticular edema. 2. Some degenerative changes also evident in the lateral compartment but no obvious lateral meniscal tear. 3. Cruciate and collateral ligaments are intact with mild findings as described above. No high-grade tears of these structures 4. Age-appropriate relatively uniform thinning of the retropatellar cartilage noted. No abnormal int raosseous signal in the posterior patella. 5. Moderate size joint effusion as well as moderate size Donis cyst popliteal fossa. There does david ear to be some fluid posterior to the medial gastrocnemius which would imply that there is at least p artial rupture of the Donis's cyst. DATA REPOSITORY:
== END 2023-04-08 03:01 ==
LOC: DI 02:42
PROVIDERS: PCP Family Medicine; Visit Provider Student in an Organized Health Care Education/Training Program
DX: S83.242A Other tear of medial meniscus, current injury, left knee, initial encounter (principal); M25.462 Effusion, left knee
CPT/HCPCS: 73721

== ENCOUNTER → 2023-04-15 10:44 | Outpatient (BNVA) | payer MEDICARE, SELFPAY | PROVIDERS: PCP Family Medicine; Referring Provider Family Medicine; Visit Provider Student in an Organized Health Care Education/Training Program | DX: S83.242D Other tear of medial meniscus, current injury, left knee, subsequent encounter (principal); S52.501D Unspecified fracture of the lower end of right radius, subsequent encounter for closed fracture with routine healing; X58.XXXD Exposure to other specified factors, subsequent encounter | CPT/HCPCS: 99214 ==

== ENCOUNTER 2023-10-16 01:50 | Outpatient (CLI) | payer MEDICARE, SELFPAY ==
[2023-10-16 11:21] LABS: ALT 12 U/L (14-59); AST 14 U/L (15-37); Albumin 3.9 g/dL (3.4-5.0); Alkaline Phosphatase 106 U/L (46-116); Anion Gap 7.8 mmol/L (3-11); BUN 16 mg/dL (7-18); Bilirubin, Total 0.2 mg/dL (0.2-1.0); CO2 27.2 mmol/L (21.0-32.0); CREATININE 0.9 mg/dL (0.55-1.02); Calcium 9.6 mg/dL (8.5-10.1); Calculated LDL 140 mg/dL (<100); Chloride 103 mmol/L (98-107); Cholesterol 229 mg/dL (<200); Estimated GFR 64.23 (mL/min/1.73m2); Glucose 125 mg/dL (74-106); HDL Cholesterol 65 mg/dL (40-60); Potassium 4.3 mmol/L (3.5-5.1); Sodium 138 mmol/L (136-145); Total Protein 7.6 g/dL (6.4-8.2); Triglyceride 122 mg/dL (<150)
[2023-10-16 12:10] LABS: Vitamin D 25 Total 58.8 ng/mL (30-100)
[2023-10-16 17:23] LABS: T3,Free 5.4 pg/mL (2.8-5.3)
== END 2023-10-16 01:51 | disposition home or self-care (01) ==
PROVIDERS: PCP Family Medicine; Visit Provider Family Medicine
DX: Z00.00 Encounter for general adult medical examination without abnormal findings (principal)
CPT/HCPCS: 36415; 80053; 80061; 82306; 84481

== ENCOUNTER 2023-12-17 18:32 | Outpatient (REF) | payer MEDICARE, SELFPAY ==
[2023-12-17 21:51] LABS: Hemoglobin A1C 6.2 % (<5.7)
[2023-12-17 22:01] LABS: FREE T4 0.84 ng/dL (0.76-1.46); TSH 0.26 uIU/mL (0.36-3.74)
[2023-12-18 18:06] LABS: T3, Total 161 ng/dL (97-169)
== END 2023-12-17 18:33 | disposition home or self-care (01) ==
LOC: NCHCN 18:32
PROVIDERS: PCP Family Medicine; Visit Provider Family Medicine
DX: E05.00 Thyrotoxicosis with diffuse goiter without thyrotoxic crisis or storm (principal); R73.01 Impaired fasting glucose
CPT/HCPCS: 83036; 84439; 84443; 84480

== ENCOUNTER 2024-12-21 09:32 | Outpatient (CLI) | payer MEDICARE, SELFPAY ==
[2024-12-21 13:26] LABS: Anion Gap 7.1 mmol/L (3-11); BUN 18 mg/dL (7-18); CO2 29.9 mmol/L (21.0-32.0); CREATININE 0.8 mg/dL (0.55-1.02); Calcium 9.7 mg/dL (8.5-10.1); Chloride 102 mmol/L (98-107); Estimated GFR 73.52 (mL/min/1.73m2); FREE T4 1.05 ng/dL (0.76-1.46); Glucose 108 mg/dL (74-106); Potassium 4.1 mmol/L (3.5-5.1); Sodium 139 mmol/L (136-145); TSH 0.08 uIU/mL (0.36-3.74)
[2024-12-21 14:12] LABS: Hemoglobin A1C 6.6 % (<5.7)
[2024-12-21 22:52] LABS: T3, Total 161 ng/dL (97-169)
== END 2024-12-21 09:33 | disposition home or self-care (01) ==
LOC: LBO 09:33
PROVIDERS: PCP Family Medicine; Visit Provider Family Medicine
DX: R73.01 Impaired fasting glucose (principal); E05.00 Thyrotoxicosis with diffuse goiter without thyrotoxic crisis or storm
CPT/HCPCS: 36415; 80048; 83036; 84439; 84443; 84480

== ENCOUNTER 2024-12-28 01:53 | Outpatient (CLI) | payer MEDICARE, SELFPAY ==
--- NOTE | 2024-12-28 | DI.MRI_ITS ---
Exam(s) MR PELVIS WO EXAM: MR PELVIS WO CLINICAL HISTORY: SI joint pain, M53.3, sacrococcygeal disorders, not elsewhere classified TECHNIQUE: Multiplanar multisequence MRI of Pelvis was performed using sacroiliac joint protocol COMPARISON: CR XR LUMBAR SPINE COMPLETE from 02/12/2023 FINDINGS: OSSEOUS/ARTICULATIONS: There is no evidence of hip stress fracture nor avascular necrosis. There are no pubic rami fractures. There are mild degenerative changes in both hips, relatively symmetrical. No obvious labral tears nor paralabral cysts. 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 This is di scussed on the separate lumbar spine MRI report dictated today. There are no significant osseous lesions in the pelvis and hips. SACROILIAC JOINTS: There is no osseous signal abnormality to suggest the presence of sacroiliitis. T here are mild degenerative changes in the SI joints but no evidence of sacroiliitis. There is no ank ylosis of the SI joints. MUSCULOTENDINOUS STRUCTURES: There is significant signal abnormality in the soft tissues lateral to the right hip greater and within the gluteus medius. Findings are consistent with tearing in the ten don of the gluteus medius. Also element of trochanteric bursitis just lateral to the greater trochan ter of the right hip. Similar findings are not seen on the opposite-left side IMPRESSION: 1. No significant abnormality of the sacroiliac joints. 2. No hip fractures nor avascular necrosis of the hips. Mild degenerative changes evident in both hi ps. 3. Significant soft tissue signal abnormality off the lateral aspect of the right hip. Somewhat diff icult to study accurately on dedicated sacroiliac protocol study. However, there appears to be signi ficant tearing of the right gluteus medius tendon and associated trochanteric bursitis. Similar find ings are not seen on the opposite-left side. DATA REPOSITORY:
--- NOTE | 2024-12-28 | DI.MRI_ITS ---
Exam(s) MR LUMBAR SPINE WO EXAM: MR LUMBAR SPINE WO CLINICAL HISTORY: Radiculopathy, lumbosacral region, M54.17. TECHNIQUE: Multiplanar multisequence MRI of the Lumbar spine was performed. COMPARISON: CR XR LUMBAR SPINE COMPLETE from 02/12/2023 FINDINGS: There is transitional anatomy here, seen on plain radiographs January 2023. There is also degenerative scoliosis convex left with epicenter asymmetrically narrowed right-side of L1-2 level. Conus medullaris is at normal level. There is no evidence of conus mass nor subjacent clumping of in trathecal nerve roots to suggest arachnoiditis. 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 Bones:There are no fractures nor ominous osseous lesions in the lumbar vertebral bodies and visualize d sacrum. With respect to the individual levels... T12-L1: Unremarkable L1-2: There is advanced narrowing of the right-side of this disc space and lateral right-sided bridgi ng osteophytes. There is very mild Modic type 1 sub endplate marrow edema change on the right side o f this disc space. There is no disc herniation or central canal stenosis. No foraminal stenosis on the left side. Minimal foraminal stenosis on the right side despite the severe disc height loss on t he right side and asymmetric right-sided annular bulging in the floor of the exiting right neural for amen. There are only mild degenerative changes in the facet joints at this level.As described above, there is a degenerative scoliosis convex left. The epicenter of the scoliosis is at the right side of this narrow disc space. L2-3: This level also exhibits significant asymmetric disc space narrowing on the right side. There also smaller right-sided bridging osteophytes at this level. Posteriorly there is no disc herniation but there is mild central spinal canal stenosis due to short AP dimensions of the pedicles and some facet arthropathy. There is some lateral right annular bulging in the floor of the exiting right kelly ral foramen at this level. Mild right-sided foraminal stenosis is noted. There is no foraminal sten osis on the opposite-left side. There is no annular bulging at the level the exiting left neural for amen. There are moderate degenerative changes in both facet joints at this level. L3-4: This level exhibits mild uniform disc space narrowing. There is mild mostly symmetrical annula r bulging without a dominant disc herniation. Central canal dimensions are lower normal. There is n o significant foraminal stenosis at this level despite significant degenerative changes in the facet joints, left more so than right. L4-5: This level exhibits normal disc height on the right side and asymmetric moderate narrowing of t he left side of the disc space. There is mild degenerative anterolisthesis of L4 upon L5 with approx imately 2 mm anterior slippage, this related to advanced facet arthropathy in both facet joints. Thi s results in moderate central canal stenosis. This canal stenosis is somewhat compounded by what david ears to be a a small degenerative synovial cyst coming off the anteromedial aspect of the left facet joint at this level, best seen on the axial images, and measuring 8 x 6 mm, this indenting the left s lokesh of the thecal sac. Similar findings not seen on the right side although there is also advanced d egenerative change in the right facet joint. There is moderate central spinal canal stenosis at this level due to above findings as well as symmetrical mild annular bulging of the annulus and facet art hropathy. There is, however, no foraminal stenosis evident on either side at this level. L5-S1: This level exhibits mild uniform decreased height. There is no disc herniation or central can al stenosis. There is moderate degenerative change in the left facet joint. Right facet joint appea rs unremarkable. No foraminal stenosis on the right side. On the left side there is some annular bu lging in the floor of the exiting left neural foramen but only minimal foraminal stenosis. Soft tissues: paraspinal soft tissues appear unremarkable. IMPRESSION: 1. Multilevel findings as described individually above. 2. There is a degenerative scoliosis convex left which is mostly due to the asymmetric advanced narro wing of the right-side of the disc spaces at L1-2 and L2-3 levels. There also lateral right-sided os teophytes at these 2 levels. 3. At L4-5 level there is grade 1 mild anterolisthesis of L4 upon L5 due to advanced facet arthropath y, this resulting in moderate central canal stenosis. At this level there is also an 8 x 6 mm degene rative synovial cyst coming off the medial aspect of the left facet joint and impinging upon the left lateral aspect of the thecal sac at this level. There is no significant foraminal stenosis on eithe r side at this level Other findings as above. DATA REPOSITORY:
== END 2024-12-28 02:13 ==
LOC: DI 01:53
PROVIDERS: PCP Family Medicine; Visit Provider Family Medicine
DX: M53.3 Sacrococcygeal disorders, not elsewhere classified (principal); M54.17 Radiculopathy, lumbosacral region
CPT/HCPCS: 72148; 72195

== ENCOUNTER 2025-01-30 14:27 | Outpatient (REF) | payer MEDICARE, SELFPAY | END 2025-01-30 14:28 | disposition home or self-care (01) | LOC: NCHCN 14:27 | PROVIDERS: PCP Family Medicine; Visit Provider Nurse Practitioner Family | DX: N39.0 Urinary tract infection, site not specified (principal); R82.89 Other abnormal findings on cytological and histological examination of urine | CPT/HCPCS: 87086 ==

== ENCOUNTER 2025-02-09 00:34 | Outpatient (CLI) | payer MEDICARE, SELFPAY ==
--- NOTE | 2025-02-09 | DI.DEXA_ITS ---
Exam(s) XR DEXA BONE DENSITY W/WO KUSH EXAM: XR DEXA BONE DENSITY W/WO KUSH CLINICAL HISTORY: M85.88 Other specified disorders of bone density and structure, other site, TECHNIQUE: Routine DEXA evaluation of the lumbar spine, hip, or forearm. COMPARISON: DX XR DEXA BONE DENSITY W/WO KUSH from 11/16/2018 FINDINGS: Performed on a [facility] unit. Lateral image: No compression fracture evident. Lumbar Spine total T-score: -0.9. Prior reading in 2019 was -0.2 Hip total T-score:-1.8. Prior reading in 2019 was also -1.8 Independent reading at the level of the femoral neck yields T-score of -1.9. Prior reading in 2019 was -1.8 Forearm total T-score: -4.0. Prior reading in 2019 was -3.9 IMPRESSION: Bone mineral density measures in the osteopenia range for the hip and osteoporosis range for the wris t and within normal limits for the lumbar spine. Fracture risk is moderate. Higher at the level the forearm/wrist. Note: Any spine fracture indicates 5x risk for subsequent spine fracture and 2x risk for subsequent h ip fracture. World Health Organization criteria for BMD interpretation classify patients: Normal...... T- Score at or above -1.0 Osteopenic... T- Score between -1.0 and -2.5 Osteoporosis... T-Score at or below -2.5
== END 2025-02-09 00:54 ==
LOC: DI 00:34
PROVIDERS: PCP Family Medicine; Visit Provider Family Medicine
DX: M85.88 Other specified disorders of bone density and structure, other site (principal)
CPT/HCPCS: 77080

== ENCOUNTER 2025-05-26 02:25 | Outpatient (CLI) | payer MEDICARE, SELFPAY ==
[2025-05-26 09:34] LABS: TSH 0.38 uIU/mL (0.36-3.74)
[2025-05-26 17:39] LABS: T3, Total 163 ng/dL (97-169)
== END 2025-05-26 02:26 | disposition home or self-care (01) ==
PROVIDERS: PCP Family Medicine; Visit Provider Student in an Organized Health Care Education/Training Program
DX: E05.90 Thyrotoxicosis, unspecified without thyrotoxic crisis or storm (principal)
CPT/HCPCS: 36415; 84235; 84439; 84443; 84445; 84480

== ENCOUNTER 2025-08-23 01:55 | Outpatient (CLI) | payer MEDICARE, SELFPAY ==
[2025-08-23 08:38] LABS: TSH 0.01 uIU/mL (0.36-3.74)
== END 2025-08-23 01:56 | disposition home or self-care (01) ==
LOC: LBO 01:55
PROVIDERS: PCP Family Medicine; Visit Provider Student in an Organized Health Care Education/Training Program
DX: Z86.39 Personal history of other endocrine, nutritional and metabolic disease (principal)
CPT/HCPCS: 36415; 84439; 84443